=== PATIENT | female | born 1935 | race Caucasian/White ===

== ENCOUNTER 2025-01-18 20:48 | Inpatient (IN) | payer OTHER ==
[~2025-01-18] VITALS: Ht 167.6 cm; Wt 83.0 kg
--- NOTE | 2025-01-18 21:02 | ED.PDOC ---
History of Present Illness HPI Comments This is a 89 year old female JOSEA presenting to the ED with chief complaint of wellness check and generalized weakness. EMS reports that the patient was previously called for today due to having a ground level fall, however, patient signed AMA to stay at home. EMS relays that family had visited her later on and found her on the ground in her own feces and with her home being a mess. EMS states they were called and patient has generalized weakness, but no other complaints. Patient notes that she wishes to discuss with her daughter what kind of work up can be done on her, but she agrees to some lab work to be performed. Patient denies any N/V/D, abdominal pain, chest pain, or SOB. Patient was tachycardic and tachypneic at arrival with a an oxygen saturation of 90% on room air. Patient was started on 2 L of O2 and O2 saturation improved to 97%. Chief Complaint: Fall Injury Time Seen by MD: 21:00 Reviewed Notes: Nurses Notes, Training Representative Notes, Medications, Allergies Allergies: Coded Allergies: No Known Drug Allergy (Verified Allergy, Unknown, 01/18/25) Information Source: Patient, Emergency Med Personnel Mode of Arrival: EMS Severity: Moderate Timing: Hours Duration: Since onset Prehospital treatment: None Past Medical History PAST MEDICAL HISTORY: HTN, Unknown Surgical History: Unknown SUPERVISOR DOCK History: Denies all SUPERVISOR DOCK Hx Family History Family History: Reviewed,noncontributory to illness Social History Smoker: Non-Smoker Alcohol: Denies ETOH Use Drugs: Denies Drug Use Lives In: Home Constitutional: reports: fatigue, malaise, weakness; denies: chills, diaphor esis, fever, sweats, others EENTM: denies: blurred vision, double vision, ear bleeding, ear discharge, ear drainage, ear pain, ear ringing, eye pain, eye redness, hearing loss, mouth pain, mouth swelling, nasal discharge, nose bleeding, nose congestion, nose pain, photophobia, tearing, throat pain, throat swelling, voice changes, others Respiratory: denies: cough, hemoptysis, orthopnea, SOB at rest, shortness of breath, SOB with excertion, stridor, wheezing, others Cardiovascular: denies: chest pain, dizzy spells, diaphoresis, Dyspnea on exertion, edema, irregular heart beat, left arm pain, lightheadedness, palpitations, PND, syncope, others Gastrointestinal: denies: abdomen distended, abdominal pain, blood streaked bowels, constipated, diarrhea, dysphagia, difficulty swallowing, hematemesis, melena, nausea, poor appetite, poor fluid intake, rectal bleeding, rectal pain, vomiting, others Genitourinary: denies: abnormal vagina bleeding, burning, dyspareunia, dysuria, flank pain, frequency, hematuria, incontinence, pain, , vagina discharge, urgency, others Neurological: denies: dizziness, fainting, headache, left sided numbness, left sided weakness, numbness, paresthesia, pre-existing deficit, right sided numbness, right sided weakness, seizure, speech problems, tingling, tremors, weakness, others Musculoskeletal: denies: back pain, gout, joint pain, joint swelling, muscle pain, muscle stiffness, neck pain, others Integumetry: denies: bruises, change in color, change in hair/nails, dryness, laceration, lesions, lumps, rash, wounds, others Allergic/Immunocompromised: denies: Difficulty Healing, Frequent Infections, Hives, Itching, others Hematologic/Lymphatic: denies: anemia, blood clots, easy bleeding, easy bruising, swollen glands, others Endocrine: denies: excessive hunger, excessive sweating, excessive thirst, excessive urination, flushing, intolerance to cold, intolerance to heat, unexplained weight gain, unexplained weight loss, others Psychiatric: denies: anxiety, bipolar disorder, depression, hopeless, panic disorder, schizophrenia, sleepless, suicidal, others All Other Systems: Reviewed and Negative Physical Exam General Appearance: Mild Distress (Patient had some mild distress at time of evaluation due to generalized pain concerns, but patient appears to be in poor overall health.), Obese HEENT: Normal ENT Inspection, Pharynx Normal, TMs Normal Neck: Full Range of Motion, Non-Tender, Normal, Normal Inspection Respiratory: Chest Non-Tender, No Accessory Muscle Use, Normal Breath Sounds, Other (Patchy rhonchi appreciated globally.) Cardiovascular: No Edema, No JVD, No Murmur, No Gallop, Normal Peripheral Pulses, Tachycardia Breast Exam: Deferred Gastrointestinal: No Organomegaly, Non Tender, No Pulsatile Mass, Normal Bowel Sounds, Soft Genitalia: Deferred Pelvic: Deferred Rectal: Deferred Extremities: Tender (Patient has a general nonspecific diffused tenderness to palpation throughout the pelvic region.) Neurologic: Alert Cerebellar Function: NOT DONE Reflexes: NOT DONE Skin: Dry, Normal Color, Warm Lymphatic: No Adenopathy Was a procedure done? Was a procedure done?: No Differential Dx Considerations may include: Acute coronary syndrome, sepsis, electrolyte abnormality, renal disease, failure to thrive X-Ray, Labs, Meds, VS Vital Signs Date Time Temp Pulse Resp B/P (MAP) Pulse Ox O2 Delivery O2 Flow Rate FiO2 01/19/25 01:09 111 27 118/57 01/18/25 22:36 107 01/18/25 21:00 97.8 137 26 131/59 (83) 90 97.8 Lab Test 01/19/25 00:19 01/19/25 00:18 01/18/25 22:05 01/18/25 21:10 Range/Units POC Glucose 130 H 70-106 mg/dl Troponin I High Sensitivity 182 *H 167 *H 151 *H </=34 ng/L White Blood Count 9.7 4.4-10.8 10^3/uL Red Blood Count 5.14 4.0-5.20 10^6/uL Hemoglobin 15.1 12.2-16.2 g/dL Hematocrit 47.0 H 36.0-46.0 % Mean Corpuscular Volume 91.5 80.0-100.0 fL Mean Corpuscular Hemoglobin 29.4 28.0-32.0 pg Mean Corpuscular Hemoglobin Concent 32.1 32.0-36.0 g/dL Red Cell Distribution Width 17.0 H 11.8-14.3 % Platelet Count 294 140-450 10^3/uL Mean Platelet Volume 7.6 6.9-10.8 fL Neutrophils (%) (Auto) 88.1 H 37.0-80.0 % Lymphocytes (%) (Auto) 3.1 L 10.0-50.0 % Monocytes (%) (Auto) 8.5 0.0-12.0 % Eosinophils (%) (Auto) 0.0 0.0-7.0 % Basophils (%) (Auto) 0.3 0.0-2.0 % Neutrophils # (Auto) 8.5 1.6-8.6 10 ^3/uL Lymphocytes # (Auto) 0.3 L 0.4-5.4 10 ^3/uL Monocytes # (Auto) 0.8 0-1.3 10 ^3/uL Eosinophils # (Auto) 0 0-0.8 10 ^3/uL Basophils # (Auto) 0 0-0.2 10 ^3/uL Nucleated Red Blood Cells 0.2 % D-Dimer, Quantitative 5.29 H 0.0-0.49 mg/L FEU Sodium Level 152 H 136-145 mmol/L Potassium Level 3.8 3.5-5.1 mmol/L Chloride Level 115 H 98-107 mmol/L Carbon Dioxide Level 23 20-31 mmol/L Anion Gap 14 5-15 Blood Urea Nitrogen 33 H 9-23 mg/dL Creatinine 0.77 0.550-1.02 mg/dL Glomerular Filtration Rate Calc 75 >90 mL/min BUN/Creatinine Ratio 42.9 H 10.0-20.0 Serum Glucose 134 H 74-106 mg/dL Calcium Level 9.7 8.7-10.4 mg/dL Total Bilirubin 1.4 H 0.2-1.0 mg/dL Aspartate Amino Transferase (AST) 65 H 13-40 U/L Alanine Aminotransferase (ALT) 28 7-40 U/L Alkaline Phosphatase 109 46-116 U/L B-Type Natriuretic Peptide 508.02 0-100 pg/mL Total Protein 6.8 5.7-8.2 g/dL Albumin 3.7 3.2-4.8 g/dL Current Medications Medications (Trade) Dose Ordered Sig/Bennie Route Start Time Stop Time Status Last Admin Sodium Chloride 1,000 ml @ 150 mls/hr Q6H40M ONCE IV 01/18/25 21:15 01/19/25 03:54 01/18/25 21:33 Morphine Sulfate 4 mg ONCE ONCE IV 01/19/25 01:00 01/19/25 01:01 DC 01/19/25 01:09 Ondansetron HCl (Zofran) 4 mg ONCE ONCE IV 01/19/25 01:00 01/19/25 01:01 DC 01/19/25 01:09 X-Ray, Labs, Meds, VS Comment All studies performed the ED were evaluated by me personally. Multiple studies were pending at time of this note. EKG revealed a sinus tachycardia with a rate of 107. Atrial premature complex noted as well as right bundle-branch block and left fascicular block. Age indeterminate inferior infarct noted with artifact in multiple leads. LA interval 162 and QT interval of 395. Serum laboratories revealed a hyponatremia, elevated bilirubin, elevated troponin and elevated D- dimer. Patient was started empirically on Lovenox. Patient is a [facility] patient and therefore, will be transferred to [facility] for continued evaluation. Discussed case with Dr. MORE at [facility]. Advised him of patient presentation, EMS report, laboratory and EKG studies. He was concerned for a acute cardiac event due to the trending of the troponins, elevated BNP as well as a low O2 sat. He will allow the patient to stay at our facility for continued management. Authorization number [id number]. Time of 1ST Reevaluation: 01:32 Reevaluation 1ST: Improved Consultation: PCP Patient Education/Counseling: Diagnosis, Treatment Family Education/Counseling: Diagnosis, Treatment, No Family Present SEPSIS Sepsis Screen Recent Procedure: No Respiratory Rate >20: Yes Heart Rate >90: Yes Temp<36 C (96.8 F) or >38.3 C: No SBP <90 or MAP <65 mmHG: No New Acute Mental Status Change: No Is the patient on CPAP, BIPAP,: No IV fluid challenge completed?: No Physician Orders Chest Portable (01/18/25 21:01) Urinalysis (01/18/25 21:01) Heplock Iv (01/18/25 21:01) Electrocardigram (01/18/25 21:01) Sodium Chloride 0.9% (01/18/25 21:15) Vital Signs Date Time Temp Pulse Resp B/P (MAP) Pulse Ox O2 Delivery O2 Flow Rate FiO2 01/19/25 01:09 111 27 118/57 01/18/25 22:36 107 01/18/25 21:00 97.8 137 26 131/59 (83) 90 97.8 Laboratory Tests Test 01/18/25 21:10 White Blood Count 9.7 10^3/uL (4.4-10.8) Medications Medications Dose Ordered Sig/Bennie Route Start Time Stop Time Status Last Admin Dose Admin Morphine Sulfate 4 mg ONCE ONCE IV 01/19/25 01:00 01/19/25 01:01 DC 01/19/25 01:09 Ondansetron HCl 4 mg ONCE ONCE IV 01/19/25 01:00 01/19/25 01:01 DC 01/19/25 01:09 Sodium Chloride 1,000 ml @ 150 mls/hr Q6H40M ONCE IV 01/18/25 21:15 01/19/25 03:54 01/18/25 21:33 Departure 1 Departure Time of Disposition: 01:33 Impression: Primary Impression: Failure to thrive Additional Impressions: Hypernatremia Elevated bilirubin Elevated troponin Elevated d-dimer Disposition: 02 SHORT TERM HOSPITAL Condition: Fair Discharged With: Self, Relative Critical Care Note Critical Care Time?: No Stability Stability form required: No Heart Score Heart Score: Heart Score Response (Comments) Value History N/A 0 EKG N/A 0 Age N/A 0 Risk Factors N/A 0 Troponin N/A 0 Total 0 I personally scribed for KEVAN GUZMAN PAC ([email or web address]) on 01/18/25 at 21:02. Electronically submitted by Niles Abdi ([email or web address]). KEVAN GUZMAN PAC Jan 18, 2025 21:02
[2025-01-18 21:28] LABS: Hematocrit 47.0 % (36.0-46.0); Hemoglobin 15.1 g/dL (12.2-16.2); Mean Corpuscular Hemoglobin 29.4 pg (28.0-32.0); Mean Corpuscular Volume 91.5 fL (80.0-100.0); Nucleated Red Blood Cells % 0.2 %
[2025-01-18] MEDS: SODIUM CHLORIDE 0.9% 1,000 ML IV ONE (21:33)
[2025-01-18 21:47] LABS: Alanine Aminotransferase 28 U/L (7-40); Albumin 3.7 g/dL (3.2-4.8); Alkaline Phosphatase 109 U/L (46-116); Anion Gap 14 (5-15); BUN/Creatinine Ratio 42.9 (10.0-20.0); Calcium 9.7 mg/dL (8.7-10.4); Carbon Dioxide 23 mmol/L (20-31); Potassium 3.8 mmol/L (3.5-5.1); Total Protein 6.8 g/dL (5.7-8.2)
[2025-01-18 21:48] LABS: Bilirubin, Total 1.4 mg/dL (0.2-1.0); Blood Urea Nitrogen 33 mg/dL (9-23); Chloride 115 mmol/L (98-107); Glucose 134 mg/dL (74-106); Sodium 152 mmol/L (136-145)
[2025-01-18 22:00] VITALS: PULSE 117; RESP 19; O2SAT 94
[2025-01-19] VITALS (9 sets, daily range): BP systolic 112–153; BP diastolic 20–69; PULSE 64–101; RESP 12–22; TEMP 98.4–98.6; O2SAT 92–98
[2025-01-19] MEDS: ONDANSETRON HCL 4 MG/2 ML VIAL IV ONE (01:09)
[2025-01-19] MEDS: MORPHINE SULFATE 4 MG/ML SYR/VIAL IV ONE (01:09)
--- NOTE | 2025-01-19 02:13 | DVH ---
EXAM: XY CHEST PORTABLE CLINICAL HISTORY: Shortness of breath/fall TECHNIQUE: Single AP view of the chest WID: COMPARISON: None FINDINGS: Lines and tubes: None Chest: Cardiomegaly and pulmonary vascular congestion diffuse interstitial thickening of the lungs. Calcifie d plaque projects over the aortic arch. Small bilateral pleural effusions. No pneumothorax. The osseous structures are grossly intact. IMPRESSION: Cardiomegaly, interstitial pulmonary edema and pulmonary vascular congestion, small bilateral pleural effusions.
[2025-01-19] MEDS: ENOXAPARIN SOD 40 MG/0.4 ML SYRINGE SC ONE ×2 (02:21→06:46)
[2025-01-19 02:50] LABS: Urine Budding Yeast OCCASIONAL /hpf (None Seen); Urine Protein, UAD 1+ (Negative)
[2025-01-19] MEDS ORDERED: NITROGLYCERIN 0.4 MG SL TAB SL PRN (04:00)
[2025-01-19] MEDS ORDERED: VANCOMYCIN PER PHARMACY 0 MG IV SCH (04:15)
--- NOTE | 2025-01-19 04:15 | DVHHP2 ---
History of Present Illness History of Present Illness Patient is 89 years old female with a history of hypertension, depression, diabetes mellitus was brought in by EMS after she was found on the ground at home. Information was gathered from chart review and after talking to patient's daughter Sobia, . As per daughter she came from [place] last night around 7:30 p.m. when she of the patient on the floor and called EMS. As per daughter patient has been having memory issue lately. Patient had chronic leg swelling but which got worse as per daughter. On arrival patient was tachycardic, tachypneic. SpO2 90% on room air. Initial lab workup revealed refill 88.1, sodium 152, lactic acid 2.2, serum creatinine 0.77, serum glucose 134, serum bilirubin 1.4, AST 65, ALT 28, troponin I 151> 167> 182, BNP 508, Cardiomegaly, interstitial pulmonary edema and pulmonary vascular congestion, small bilateral pleural effusions. Doppler study of Bilateral lower extremity negative for DVT. Ultrasound of the liver suggestive of cirrhosis of liver, gallbladder sludge with a possible small gallstone in the gallbladder, no acute cholecystitis, bilateral hydronephrosis, left> right, obstructive uropathy not excluded. As per daughter patient has a advanced directive and patient wished to be DNR. Past Medical History Hypertension, diabetes mellitus, depression Past Surgical History Details could not be gathered Past Social History Patient's live at home alone, other details could not be gathered Review of Systems Review of Systems Review of other system could not be done due to patient's altered mental status Allergies: Coded Allergies: No Known Drug Allergy (Verified Allergy, Unknown, 01/18/25) Medications Current Medications Medications Dose Ordered Sig/Bennie Route Start Time Stop Time Status Last Admin Dose Admin Sodium Chloride 10 ml Q8HR IV 01/19/25 06:00 Enoxaparin Sodium 40 mg HS SC 01/19/25 22:00 Nitroglycerin 0.4 mg Q5MINP PRN SL 01/19/25 04:00 Meropenem 50 ml @ 17 mls/hr Q8HR IV 01/19/25 06:00 Vancomycin HCl 0 ml @ 0 mls/hr UD IV 01/19/25 04:15 UNV Pantoprazole Sodium 40 mg DAILY IV 01/20/25 10:00 Exam Vital Signs Vital Signs Date Time Temp Pulse Resp B/P (MAP) Pulse Ox O2 Delivery O2 Flow Rate FiO2 01/19/25 01:09 111 27 118/57 01/18/25 21:00 97.8 90 97.8 Exam General examination- patient with poor dentition HEENT- PEERLA, no acute nasal discharge Cardiovascular- S1-S2 audible, rate and rhythm regular, systolic murmur+ Respiratory- bilateral lung crackles+ Gastrointestinal-nontender, bowel sound+. Nondistended Musculoskeletal-no acute joint swelling or tenderness or redness Lower extremity- bilateral leg swollen, red, erythematous, crusty Neurological-patient with altered mental status, details of the neurologic examination could not be done Psychiatry- patient with altered mental status Skin-bilateral leg swelling, redness, erythematous Labs/Xrays Labs Test 01/19/25 01:21 01/19/25 00:19 01/19/25 00:18 01/18/25 21:10 Range/Units Urine Color Yellow Yellow Urine Clarity Turbid H Clear Urine pH 5.5 5.0-9.0 Urine Specific [place] 1.027 1.001-1.035 Urine Protein 1+ H Negative Urine Ketones 1+ H Negative Urine Blood 1+ H Negative /uL Urine Nitrite Negative Negative Urine Bilirubin Negative Negative Urine Urobilinogen Normal Negative mg/dL Urine Leukocyte Esterase Trace Negative /uL Urine RBC 1 0 - 4 /hpf Urine Microscopic WBC 11 H 0-5 /HPF Urine Squamous Epithelial Cells Few <5 /hpf Urine Bacteria Many H None Seen /hpf Urine Mucus Few None Seen Urine Yeast (Budding) Occasional None Seen /hpf Urine Glucose Normal Normal mg/dL POC Glucose 130 H 70-106 mg/dl Troponin I High Sensitivity 182 *H </=34 ng/L White Blood Count 9.7 4.4-10.8 10^3/uL Red Blood Count 5.14 4.0-5.20 10^6/uL Hemoglobin 15.1 12.2-16.2 g/dL Hematocrit 47.0 H 36.0-46.0 % Mean Corpuscular Volume 91.5 80.0-100.0 fL Mean Corpuscular Hemoglobin 29.4 28.0-32.0 pg Mean Corpuscular Hemoglobin Concent 32.1 32.0-36.0 g/dL Red Cell Distribution Width 17.0 H 11.8-14.3 % Platelet Count 294 140-450 10^3/uL Mean Platelet Volume 7.6 6.9-10.8 fL Neutrophils (%) (Auto) 88.1 H 37.0-80.0 % Lymphocytes (%) (Auto) 3.1 L 10.0-50.0 % Monocytes (%) (Auto) 8.5 0.0-12.0 % Eosinophils (%) (Auto) 0.0 0.0-7.0 % Basophils (%) (Auto) 0.3 0.0-2.0 % Neutrophils # (Auto) 8.5 1.6-8.6 10 ^3/uL Lymphocytes # (Auto) 0.3 L 0.4-5.4 10 ^3/uL Monocytes # (Auto) 0.8 0-1.3 10 ^3/uL Eosinophils # (Auto) 0 0-0.8 10 ^3/uL Basophils # (Auto) 0 0-0.2 10 ^3/uL Nucleated Red Blood Cells 0.2 % D-Dimer, Quantitative 5.29 H 0.0-0.49 mg/L FEU Sodium Level 152 H 136-145 mmol/L Potassium Level 3.8 3.5-5.1 mmol/L Chloride Level 115 H 98-107 mmol/L Carbon Dioxide Level 23 20-31 mmol/L Anion Gap 14 5-15 Blood Urea Nitrogen 33 H 9-23 mg/dL Creatinine 0.77 0.550-1.02 mg/dL Glomerular Filtration Rate Calc 75 >90 mL/min BUN/Creatinine Ratio 42.9 H 10.0-20.0 Serum Glucose 134 H 74-106 mg/dL Calcium Level 9.7 8.7-10.4 mg/dL Total Bilirubin 1.4 H 0.2-1.0 mg/dL Aspartate Amino Transferase (AST) 65 H 13-40 U/L Alanine Aminotransferase (ALT) 28 7-40 U/L Alkaline Phosphatase 109 46-116 U/L B-Type Natriuretic Peptide 508.02 0-100 pg/mL Total Protein 6.8 5.7-8.2 g/dL Albumin 3.7 3.2-4.8 g/dL Assessment/Plan Assessment/Plan Assessment and plan # metabolic encephalopathy/hepatic encephalopathy likely due to cirrhosis of liver, cellulitis/UTI -NPO -continue meropenem and vancomycin as prescribed -pending blood culture, urine culture, sputum culture -pending serum ammonia, TSH -monitor vitals # acute hypoxic respiratory failure likely due to CHF Rule out pulmonary embolism Rule out pneumonia -pending blood culture, urine culture, sputum culture -continue meropenem and vancomycin as prescribed # NSTEMI likely type 2 due to demand related ischemia -pending echo 2D # bilateral lower extremity cellulitis -continue meropenem and vancomycin as prescribed -pending blood culture, urine culture, sputum culture -pending serum ammonia, TSH -monitor vitals # bilateral leg swelling, rule out DVT -elevated D-dimer 5.29 -pending Doppler study of the bilateral lower extremity -order CT angio of the chest to rule out pulmonary embolism # sepsis likely due to bilateral lower extremity cellulitis Continue meropenem and vancomycin as prescribed -pending blood culture, uterine culture, sputum culture # CHF systolic versus diastolic -continue Lasix 20 mg IV b.i.d. Pending echo 2D Ordered cardiology consult # cirrhosis of liver -ultrasound of the liver suggestive of cirrhosis of liver -continue lactulose 30 mL b.i.d. -avoid dehydration and constipation # hyper ammonia -lactulose 30 mL p.o. b.i.d. -avoid constipation # hypernatremia # transaminitis -monitor BNP -order acute hepatitis panel # suspected acute complicated cystitis -continue metoprolol as prescribed -pending urine culture # altered mental status Continue IV antibiotic meropenem and vancomycin as prescribed -pending blood culture, urine culture, sputum culture # gallbladder surge with a gallstone -continue conservative management # bilateral hydronephrosis -continue conservative management Diet-NPO Patient with AMS likely due to metabolic encephalopathy, CHF, acute hypoxic respiratory failure, suspected pulmonary embolism/pneumonia, bilateral lower extremity cellulitis. patient is clinically unstable to be transferred. spoke to patient's daughter Daughter Sobia [phone]. Family mentioned patient wants DNR. But continue aggressive management until. Goals of care, Code status DNR ; discussed with >15 minutes PUD prophylaxis: Pantoprazole DVT prophylaxis: Plan discussed with Dr. Cannon , nursing staff, Total time spent on patient evaluation, chart review, assessment and plan, discussion discussion >35 minutes Plan discussed with: Daughter, Other (RN) My Orders Orders - VERONICA MEDRANO RESIDENT Procedure Category Date Status Time Admit ADMIT 01/19/25 Transmitted 03:54 Sodium Chloride Lock PHA 01/19/25 In Process (Saline Lock Ns) 06:00 Enoxaparin Sodium PHA 01/19/25 In Process (Lovenox) 22:00 Complete Blood Count LAB 01/20/25 Verified 04:00 Comprehensive LAB 01/20/25 Verified Metabolic Panel 04:00 Npo (Nothing By DIET 01/19/25 Transmitted Mouth) Diet Breakfast Echo 2d Mode Cardiac US 01/19/25 Logged DOP 03:54 Stat Ekg For Chest EMMA 01/19/25 In Process Pain 03:54 Notify Md Of Changes EMMA 01/19/25 In Process From Base 03:54 Hooker Laster For EMMA 01/19/25 In Process 24 Hours 03:54 Nitroglycerin PHA 01/19/25 In Process Sublingual (Ntrostat 04:00 Magnesium LAB 01/19/25 Logged 03:56 Bilat Lower Dvt US 01/19/25 Logged 03:[address] 01/19/25 Logged 03:[address] 01/19/25 Transmitted Contrast 03:56 Thyroid Stimulating LAB 01/19/25 Transmitted Hormone 03:56 Ammonia LAB 01/19/25 Logged 03:59 Lactic Acid W/ Reflex LAB 01/19/25 Logged Order 03:59 Blood Culture RUY 01/19/25 Logged 03:59 Respiratory Culture RUY 01/19/25 Logged W/ Gs 03:59 Urine Bacterial RUY 01/19/25 Logged Culture 03:59 Meropenem 1gm Ivpb PHA 01/19/25 In Process (Merrem 1gm/ Ns) 06:00 Vancomycin Per PHA 01/19/25 Pending Pharmacy 04:15 Pantoprazole PHA 01/19/25 In Process (Protonix) 04:15 Covid19 Antigen Naina LAB 01/19/25 Logged Rapid Influenza A&B LAB 01/19/25 Logged 04:04 Mrsa Screen RUY 01/19/25 Logged 04:04 Pantoprazole PHA 01/20/25 In Process (Protonix) 10:00 Vancomycin 1gm/200ml PHA 01/19/25 In Process Pm 04:15 Date of Service: Jan 19, 2025 Billing Provider: JOSE CANNON MD Common Visit Codes: [id number] INP/OBS CARE (HIGH) Secondary Visit Codes: [id number] CARE PLAN 30 MINUTES BABU,MOHAMMED RESIDENT Jan 19, 2025 04:15
[2025-01-19 04:36] LABS: Lactic Acid w/Reflex 2.2 mmol/L (0.4-2.0)
[2025-01-19] MEDS: PANTOPRAZOLE 40 MG/10 ML VIAL INJ IV ONE (04:45)
[2025-01-19] MEDS: LACTULOSE 20Gm/30ML SOLN PO ONE (05:30)
--- NOTE | 2025-01-19 05:43 | DVH ---
EXAM: CT HEAD WITHOUT CONTRAST HISTORY: AMS/STROKE COMPARISON: None TECHNIQUE: Noncontrast axial CT images of the head were performed. Sagittal and coronal reformatted i mages were obtained. This CT exam was performed using 1 or more of the following dose reduction techn iques: Automated exposure control, adjustment of the mA and/or kv according to patient size, or the u se of iterative reconstruction techniques. Radiation Dose: CTDI volume is 56.62 mGy. Dose-length product is 1114.02 mGy*cm FINDINGS: There is mild global brain atrophy. There is mild decreased attenuation in the periventricular white matter. There are old lacunar infarcts versus prominent perivascular spaces along the caudal margins of the bilateral basal ganglia. Possible empty sella. No intracranial hemorrhage, mass, midline shift , hydrocephalus, or evidence of acute large vessel infarct. The partially-visualized paranasal sinuse s are clear. The bilateral mastoid air cells and middle ear spaces are clear. There are degenerative changes of the temporomandibular joints, more severe on the right. No cranial fracture or scalp edema . Patient motion limits evaluation, especially on the more caudal images. IMPRESSION: Mild global brain atrophy and chronic ischemic changes without evidence of acute intracranial process .
[2025-01-19] MEDS: SODIUM CHLOR 0.9% PF (SALINE LOCK) 10ML VIAL/SYR IV SCH (06:00)
--- NOTE | 2025-01-19 06:42 | ECG ---
[facility] Test Date: 2025-01-18 Test Time: 22:36:37 Pat Name: JAYSON CENTENO Department: ER Room: 0220T Gender: F Subject Scientific Research: NANCY : 1935 Requested By: KEVAN GUZMAN Order Number: [id number] Reading MD: Rk Solano Measurements Intervals [place] Rate: 107 P: 51 CT: 162 QRS: 148 QRSD: 137 T: -12 QT: 395 QTc: 527 Interpretive Statements Sinus tachycardia Atrial premature complex RBBB and LPFB Inferior infarct, age indeterminate Artifact in lead(s) I,II,III,aVR,V1,V2,V3,V4,V5,V6 Electronically Signed On 01-24-2025 18:47:50 PDT by Rk Solano Please click the below link to view image of tracing.
[2025-01-19] MEDS: FUROSEMIDE 20 MG/2 ML VIAL IV ONE (06:46)
[2025-01-19] MEDS: MEROPENEM 1GM IVPB 50 ML IV SCH (06:50)
--- NOTE | 2025-01-19 07:56 | DVH ---
Bilateral lower extremity venous duplex Clinical History: LEG SWELLING Comparison: None Technique: Duplex Doppler evaluation of the deep venous systems of both lower extremities from the common femora l veins to the popliteal veins including color Doppler and spectral/pulsed waveform analysis was perf ormed. Findings: RIGHT SIDE: The common femoral vein demonstrates appropriate compressibility and waveform variability. There is compressibility/patency of the great saphenous vein at the proximal thigh. The femoral vein demonstrates appropriate compressibility and waveform variability. The deep femoral vein demonstrates appropriate compressibility and waveform variability. The popliteal vein demonstrates appropriate compressibility and waveform variability. There is normal compressibility at the tibioperoneal trunk. LEFT SIDE: The common femoral vein demonstrates appropriate compressibility and waveform variability. There is compressibility/patency of the great saphenous vein at the proximal thigh. The femoral vein demonstrates appropriate compressibility and waveform variability. The deep femoral vein demonstrates appropriate compressibility and waveform variability. The popliteal vein demonstrates appropriate compressibility and waveform variability. There is normal compressibility at the tibioperoneal trunk. Impression: No right or left femoropopliteal venous thrombosis.
--- NOTE | 2025-01-19 08:03 | DVH ---
CLINICAL INFORMATION: Cirrhosis. TECHNIQUE: Grayscale sonographic imaging of the right upper quadrant of the abdomen was performed, a ssisted by color Doppler technique. COMPARISON: None FINDINGS: The gallbladder wall measures 1.4 mm in thickness, within normal limits. There is sludge in the gallbladder and possible superimposed gallstones. Limited evaluation of the gallbladder due t o the patient's clinical condition, unable to move the patient into the left lateral decubitus positi on. Negative reported sonographic navarro's sign. The common bile duct measures 2.5 mm in diameter, w ithin normal limits. Coarsened liver echotexture. Mild nodular contour of the liver, may be seen with cirrhosis in the feroz ropriate clinical setting. The pancreas is obscured by bowel gas. The right kidney measures 9.8 cm. There is mild to moderate right hydronephrosis. Normal cortical e chogenicity and cortical thickness. The left kidney was scanned for comparison. Left kidney measures 11.5 cm in length. Mild left hydron ephrosis. Unremarkable echogenicity and cortical thickness of the left kidney. IMPRESSION: 1. Nodular contour of the liver and coarsened liver echotexture, may be seen with cirrhosis in the ap propriate clinical setting. Correlate with clinical findings. 2. There is gallbladder sludge and possible small gallstones in the gallbladder. Limited evaluation of the gallbladder for the reasons described above. No sonographic evidence of acute cholecystitis. 3. There is bilateral hydronephrosis, left greater than right. Obstructive uropathy not excluded. Co rrelate with clinical findings. If clinically indicated, CT could be obtained.
[2025-01-19 08:34] LABS: Hematocrit 46.9 % (36.0-46.0); Hemoglobin 14.6 g/dL (12.2-16.2); Mean Corpuscular Hemoglobin 29.4 pg (28.0-32.0); Mean Corpuscular Volume 94.7 fL (80.0-100.0); Nucleated Red Blood Cells % 0.0 %
[2025-01-19 08:52] LABS: Alanine Aminotransferase 33 U/L (7-40); Albumin 3.3 g/dL (3.2-4.8); Alkaline Phosphatase 105 U/L (46-116); Anion Gap 12 (5-15); BUN/Creatinine Ratio 47.1 (10.0-20.0); Bilirubin, Total 1.2 mg/dL (0.2-1.0); Calcium 9.0 mg/dL (8.7-10.4); Carbon Dioxide 23 mmol/L (20-31); Glucose 96 mg/dL (74-106); Magnesium 1.9 mg/dL (1.6-2.6); Potassium 3.8 mmol/L (3.5-5.1); Total Protein 6.0 g/dL (5.7-8.2)
[2025-01-19 08:53] LABS: Blood Urea Nitrogen 32 mg/dL (9-23); Chloride 120 mmol/L (98-107); Sodium 155 mmol/L (136-145)
[2025-01-19] MEDS: LACTULOSE 20Gm/30ML SOLN PO SCH (09:41)
[2025-01-19 11:01] LABS: COVID19 ANTIGEN SOFIA FIA NEGATIVE (NEGATIVE)
[2025-01-19] MEDS: IOHEXOL 300 MG/ML 100ML BOTTLE IJ ONE (16:41)
--- NOTE | 2025-01-19 17:38 | DVHPN2 ---
Subjective Patient remains A&O x1. She is barely able to answer any questions for ROS. Remains confused. Daughter at bedside remains concerned and communicates that patient is very hard headed and hides her chronic complaints. Patient's chart reviewed and patient has advanced directive for DNR DNI. Reviewed: H&P Changes from previous H/P or p: No Changes General: Per HPI Objective Vitals Vital Signs Date Time Temp Pulse Resp B/P (MAP) Pulse Ox O2 Delivery O2 Flow Rate FiO2 01/19/25 16:52 98.6 98 19 133/55 (81) 96 98.6 01/19/25 09:03 Nasal Cannula* 3 32 Intake/Output Intake and Output 01/19/25 07:00 Intake Total 900 ml Balance 900 ml IV Total 900 ml Exam GEN: Healthy appearing, well-developed, NAD. Disheveled, very on hygienic, A&O x1, somnolent HEENT: Poor dentition, want to thin lower teeth is almost loose CV: RRR, no m/r/g. LUNGS: CTAB, no w/r/c. ABD: Soft, NT/ND, NBS, no masses or organomegaly. EXT:. Chronic pitting edema and weeping has resulted in crusting of legs, edema is trace to 1+ bilateral. NEURO: Ambulating with no limitations. No focal deficits. Patient has a resting tremor versus with posture. Medications Current Medications Medications Dose Ordered Sig/Bennie Route Start Time Stop Time Status Last Admin Dose Admin Sodium Chloride 10 ml Q8HR IV 01/19/25 06:00 01/19/25 13:59 10 ML Nitroglycerin 0.4 mg Q5MINP PRN SL 01/19/25 04:00 Meropenem 50 ml @ 17 mls/hr Q8HR IV 01/19/25 06:00 01/19/25 13:53 17 MLS/HR Vancomycin HCl 0 ml @ 0 mls/hr UD IV 01/19/25 04:15 Pantoprazole Sodium 40 mg DAILY IV 01/20/25 10:00 Enoxaparin Sodium 40 mg DAILY SC 01/20/25 10:00 Furosemide 20 mg BIDD IV 01/19/25 18:00 Lactulose 30 ml BID PO 01/19/25 10:00 Vancomycin HCl 150 ml @ 150 mls/hr Q16H IV 01/19/25 21:00 Laboratory Results Laboratory Tests 01/19/25 08:05 Chemistry Test 01/18/25 21:10 01/19/25 04:07 01/19/25 08:05 Albumin 3.7 g/dL (3.2-4.8) 3.3 g/dL (3.2-4.8) Calcium Level 9.7 mg/dL (8.7-10.4) 9.0 mg/dL (8.7-10.4) Total Protein 6.8 g/dL (5.7-8.2) 6.0 g/dL (5.7-8.2) Magnesium Level 2.0 mg/dL (1.6-2.6) 1.9 mg/dL (1.6-2.6) Coagulation Test 01/18/25 21:10 D-Dimer, Quantitative 5.29 mg/L FEU (0.0-0.49) H Cardiac Markers Test 01/18/25 21:10 01/19/25 11:49 B-Type Natriuretic Peptide 508.02 pg/mL (0-100) 597.68 pg/mL (0-100) LFT Test 01/18/25 21:10 01/19/25 08:05 Alanine Aminotransferase (ALT) 28 U/L (7-40) 33 U/L (7-40) Alkaline Phosphatase 109 U/L (46-116) 105 U/L (46-116) Aspartate Amino Transferase (AST) 65 U/L (13-40) H 77 U/L (13-40) H Total Bilirubin 1.4 mg/dL (0.2-1.0) H 1.2 mg/dL (0.2-1.0) H HgA1c, TSH Test 01/19/25 04:07 Thyroid Stimulating Hormone (TSH) 1.55 uIU/mL (0.55-4.78) Urinalysis Test 01/19/25 01:21 Urine Color Yellow (Yellow) Urine Clarity Turbid (Clear) H Urine pH 5.5 (5.0-9.0) Urine Specific [place] 1.027 (1.001-1.035) Urine Protein 1+ (Negative) H Urine Ketones 1+ (Negative) H Urine Blood 1+ /uL (Negative) H Urine Nitrite Negative (Negative) Urine Bilirubin Negative (Negative) Urine Urobilinogen Normal mg/dL (Negative) Urine Leukocyte Esterase Trace /uL (Negative) Urine RBC 1 /hpf (0 - 4) Urine Microscopic WBC 11 /HPF (0-5) H Urine Squamous Epithelial Cells Few /hpf (<5) Urine Bacteria Many /hpf (None Seen) H Urine Mucus Few (None Seen) Urine Yeast (Budding) Occasional /hpf (None Urine Glucose Normal mg/dL (Normal) Labs and/or images reviewed: Labs reviewed by me, Image(s) reviewed by me Assessment/Plan Assessment/Plan Acute hypoxic respiratory failure due to below Aspiration pneumonia Community-acquired pneumonia, Gram-negative Gram-positive likely Sepsis due to above Tachycardia Tachypnea Volume overload state Acute decompensated heart failure, congestive heart failure with exacerbation, diastolic failure possible Acute toxic metabolic encephalopathy due to below Cirrhosis Hepatic encephalopathy likely Hyperammonemia Intravascular volume depletion NSTEMI and Troponinemia, likely type 2, demand ischemia due to above Dental infection likely Poor dentition Azotemia Lactic acidosis Bilateral lower extremity edema Ruled out DVT Bilateral hydronephrosis Acute on Chronic urinary retention Acute Pulmonary edema Neutrophilia Hypernatremia Hyperbilirubinemia Transaminitis, mild Rhabdomyolysis Intracranial hemorrhage ruled out Cholelithiasis with Gallbladder sludge - maintain oxygen saturation more than 92% -continue broad-spectrum antibiotics, sepsis protocol , vancomycin/meropenem -Blood cultures pending, -maintaining telemetry -clear liquid diet only ( juice sips, water sips, ice chips only if awake , alert) -lactulose 30 b.i.d. - TSH normal limits -D5W for hypernatremia likely due to intravascular volume depletion - very poor prognosis at this time. - wound care consult -[place] and maintain - DVT prophylaxis with Lovenox -unstable for transfer at this time as patient is hypersomnolent with septic picture. Patient is at high risk of decompensating anytime. Patient is to be maintained as DNR DNI as per advance directives.. Patient unable to make decisions for transfer right now. We will communicate with daughter tomorrow once patient is stable for transfer. Plan discussed with: Patient Date of Service: Jan 19, 2025 Billing Provider: WALTER DAVID MD Common Visit Codes: [id number] INP/OBS CARE(HIGH) WALTER DAVID MD Jan 19, 2025 17:38
--- NOTE | 2025-01-19 17:53 | DVH ---
EXAM: CT CT ANGIO CHEST CONTRAST History: Rule out PE Comparison Study: None TECHNIQUE: A digital community engagement representative image was obtained. During the uneventful, intravenous administration of c ontrast material, multislice data acquisition was obtained through the chest. 3-D postprocessing is performed by technologist including MIP imaging Radiation Dose : CTDI vol 23.29 mGy, DLP 779.9 mGy*cm. Findings: Lungs: The lungs are clear. Pleura: Trace bilateral pleural effusions. Heart/Great vessels: No cardiomegaly or pericardial effusion. No pulmonary embolism, aneurysm, or dis section. Moderate coronary atherosclerosis. Mediastinum: Unremarkable Soft tissues/Bones: Mild multilevel degenerative changes of the thoracic spine. The partially visualized upper abdomen is within normal limits. Impression: 1. No evidence of a pulmonary embolism, aneurysm, or dissection. 2. Trace bilateral pleural effusions.
[2025-01-19] MEDS: FUROSEMIDE 20 MG/2 ML VIAL IV SCH (18:47)
[2025-01-19] MEDS: D5W 5% 1,000 ML IV SCH (18:49)
[2025-01-19] MEDS: VANCOMYCIN 750mg/150ml 150 ML IV SCH (21:12)
[2025-01-19] MEDS ORDERED: ENOXAPARIN SOD 40 MG/0.4 ML SYRINGE SC SCH (22:00)
[2025-01-20] VITALS (7 sets, daily range): BP systolic 108–122; BP diastolic 40–85; PULSE 89–112; RESP 17–20; TEMP 98.1–98.8; O2SAT 94–97
[2025-01-20 07:24] LABS: Hematocrit 43.6 % (36.0-46.0); Hemoglobin 14.0 g/dL (12.2-16.2); Mean Corpuscular Hemoglobin 29.5 pg (28.0-32.0); Mean Corpuscular Volume 92.1 fL (80.0-100.0); Nucleated Red Blood Cells % 0.1 %
[2025-01-20 07:43] LABS: Alanine Aminotransferase 26 U/L (7-40); Alkaline Phosphatase 91 U/L (46-116); Anion Gap 12 (5-15); BUN/Creatinine Ratio 35.0 (10.0-20.0); Bilirubin, Total 0.7 mg/dL (0.2-1.0); Blood Urea Nitrogen 21 mg/dL (9-23); Calcium 9.0 mg/dL (8.7-10.4); Carbon Dioxide 26 mmol/L (20-31); Total Protein 5.9 g/dL (5.7-8.2)
[2025-01-20 07:45] LABS: Albumin 3.1 g/dL (3.2-4.8); Chloride 116 mmol/L (98-107); Glucose 59 mg/dL (74-106); Potassium 3.1 mmol/L (3.5-5.1); Sodium 154 mmol/L (136-145)
[2025-01-20] MEDS: PANTOPRAZOLE 40 MG/10 ML VIAL INJ IV SCH (09:34)
[2025-01-20] MEDS: ENOXAPARIN SOD 40 MG/0.4 ML SYRINGE SC SCH (09:35)
--- NOTE | 2025-01-20 09:47 | DVHSR ---
APPROVED REPORT EXAM: Two-dimensional and M-mode echocardiogram with Doppler and color Doppler. Blood Pressure: 130/59 mmHg INDICATION CHF RISK FACTORS Height: 5' 6", Weight: 220 DIMENSIONS LVDd4.0 (3.8-5.7cm)LA (2D)4.3 (1.9-4.0cm)Aortic Root3.3 (2.0-3.7cm) LVDs3.0 (2.5-4.0cm)LA (MM) (1.9-4.0cm)Aortic Cusp Exc1.6 (1.5-2.0cm) EF (%) 50.0 (55-70%)Rt. Atrium4.7 (1.9-4.0cm)Asc. Aorta cm IVSd1.5 (0.7-1.1cm)RV (D) (1.8-2.4cm) PWd1.4 (0.7-1.1cm) Mitral Valve MitralMitral Stenosis E wave1.70m/sMV Mean GR.7mmHg A wave1.70m/sMV Peak GR.12mmHg E/A ratio1.02D MVAcm2 DECEL [id number] 1/2 Timems Aortic Valve Aortic ValveAortic Stenosis V11.20m/Mohsen Mean GR.14mmHg V22.50m/Mohsen Peak GR.26mmHg LVOT Diameter2.0 (1.8-2.4cm)Doppler AVA1.51cm2 Pulmonic Valve V20.90m/s Tricuspid Valve TR Velocity3.60m/s [id number] Conclusion lvef 55% severe LVH normal rv function severe mitral stenosis, mean gradient of 7 mmhg left atrium enlarged severe tricuspid regurg
[2025-01-20] MEDS ORDERED: MORPHINE SULFATE INJ 2 MG/ml SYRG IV PRN (10:30)
--- NOTE | 2025-01-20 10:36 | DVHPN2 ---
Reviewed: Care Plan, H&P, Labs, Medications, Previous Orders Changes from previous H/P or p: No Changes General: Per HPI Objective Vitals Vital Signs Date Time Temp Pulse Resp B/P (MAP) Pulse Ox O2 Delivery O2 Flow Rate FiO2 01/20/25 09:00 98.1 112 20 117/40 (65) 97 98.1 01/19/25 20:00 Nasal Cannula* 5 40 Intake/Output Intake and Output 01/20/25 07:00 Intake Total 550 ml Output Total 2800 ml Balance -2250 ml Intake Oral 250 ml IV Total 300 ml Output Urine Total 2800 ml General Appearance: Alert, Oriented X3 Cardiovascular: Regular rate, Normal S1, Normal S2 Extremities: No clubbing Neuro: Normal speech Medications Current Medications Medications Dose Ordered Sig/Bennie Route Start Time Stop Time Status Last Admin Dose Admin Sodium Chloride 10 ml Q8HR IV 01/19/25 06:00 01/20/25 05:47 10 ML Nitroglycerin 0.4 mg Q5MINP PRN SL 01/19/25 04:00 Meropenem 50 ml @ 17 mls/hr Q8HR IV 01/19/25 06:00 01/20/25 05:47 17 MLS/HR Vancomycin HCl 0 ml @ 0 mls/hr UD IV 01/19/25 04:15 Pantoprazole Sodium 40 mg DAILY IV 01/20/25 10:00 01/20/25 09:34 40 MG Enoxaparin Sodium 40 mg DAILY SC 01/20/25 10:00 01/20/25 09:35 40 MG Furosemide 20 mg BIDD IV 01/19/25 18:00 01/20/25 05:47 20 MG Lactulose 30 ml BID PO 01/19/25 10:00 01/20/25 09:34 30 ML Vancomycin HCl 150 ml @ 150 mls/hr Q16H IV 01/19/25 21:00 01/19/25 21:12 150 MLS/HR Dextrose 1,000 ml @ 50 mls/hr Q20H IV 01/19/25 17:45 01/19/25 18:49 50 MLS/HR Acetaminophen/ Hydrocodone Bitart 1 tab Q6HP PRN PO 01/20/25 10:30 Morphine Sulfate 1 mg Q4HP PRN IV 01/20/25 10:30 Laboratory Results Laboratory Tests 01/20/25 05:47 Chemistry Test 01/20/25 05:47 Albumin 3.1 g/dL (3.2-4.8) L Calcium Level 9.0 mg/dL (8.7-10.4) Total Protein 5.9 g/dL (5.7-8.2) Cardiac Markers Test 01/19/25 11:49 B-Type Natriuretic Peptide 597.68 pg/mL (0-100) LFT Test 01/20/25 05:47 Alanine Aminotransferase (ALT) 26 U/L (7-40) Alkaline Phosphatase 91 U/L (46-116) Aspartate Amino Transferase (AST) 63 U/L (13-40) H Total Bilirubin 0.7 mg/dL (0.2-1.0) Urinalysis Test 01/19/25 01:21 Urine Color Yellow (Yellow) Urine Clarity Turbid (Clear) H Urine pH 5.5 (5.0-9.0) Urine Specific [place] 1.027 (1.001-1.035) Urine Protein 1+ (Negative) H Urine Ketones 1+ (Negative) H Urine Blood 1+ /uL (Negative) H Urine Nitrite Negative (Negative) Urine Bilirubin Negative (Negative) Urine Urobilinogen Normal mg/dL (Negative) Urine Leukocyte Esterase Trace /uL (Negative) Urine RBC 1 /hpf (0 - 4) Urine Microscopic WBC 11 /HPF (0-5) H Urine Squamous Epithelial Cells Few /hpf (<5) Urine Bacteria Many /hpf (None Seen) H Urine Mucus Few (None Seen) Urine Yeast (Budding) Occasional /hpf (None Urine Glucose Normal mg/dL (Normal) Microbiology Microbiology Date/Time Source Procedure Growth Status 01/19/25 08:00 Voided Urine Urine Culture - Preliminary Resulted 01/19/25 04:07 Blood Blood Culture - Preliminary NO GROWTH AFTER 24 HOURS OF INCUBATION. Resulted Labs and/or images reviewed: Labs reviewed by me, Image(s) reviewed by me Assessment/Plan Assessment/Plan Patient is 89 years old female with a history of hypertension, depression, diabetes mellitus was brought in by EMS after she was found on the ground at home. Information was gathered from chart review and after talking to patient's daughter Sobia, . As per daughter she came from [place] last night around 7:30 p.m. when she of the patient on the floor and called EMS. As per daughter patient has been having memory issue lately. Patient had chronic leg swelling but which got worse as per daughter. On arrival patient was tachycardic, tachypneic. SpO2 90% on room air. Initial lab workup revealed refill 88.1, sodium 152, lactic acid 2.2, serum creatinine 0.77, serum glucose 134, serum bilirubin 1.4, AST 65, ALT 28, troponin I 151> 167> 182, BNP 508, Cardiomegaly, interstitial pulmonary edema and pulmonary vascular congestion, small bilateral pleural effusions. Doppler study of Bilateral lower extremity negative for DVT. Ultrasound of the liver suggestive of cirrhosis of liver, gallbladder sludge with a possible small gallstone in the gallbladder, no acute cholecystitis, bilateral hydronephrosis, left> right, obstructive uropathy not excluded. Acute hypoxic respiratory failure due to below Aspiration pneumonia Community-acquired pneumonia, Gram-negative Gram-positive likely Sepsis due to above Tachycardia Tachypnea Volume overload state Acute decompensated heart failure, congestive heart failure with exacerbation, diastolic failure possible Acute toxic metabolic encephalopathy due to below Cirrhosis Hepatic encephalopathy likely Hyperammonemia Intravascular volume depletion NSTEMI and Troponinemia, likely type 2, demand ischemia due to above Dental infection likely Poor dentition Azotemia Lactic acidosis Bilateral lower extremity edema Ruled out DVT Bilateral hydronephrosis Acute on Chronic urinary retention Acute Pulmonary edema Neutrophilia Hypernatremia Hyperbilirubinemia Transaminitis, mild Rhabdomyolysis Intracranial hemorrhage ruled out Cholelithiasis with Gallbladder sludge CT abd 1. Nodular contour of the liver and coarsened liver echotexture, may be seen with cirrhosis in the appropriate clinical setting. Correlate with clinical findings. 2. There is gallbladder sludge and possible small gallstones in the gallbladder. Limited evaluation of the gallbladder for the reasons described above. No sonographic evidence of acute cholecystitis. 3. There is bilateral hydronephrosis, left greater than right. Obstructive uropathy not excluded. Correlate with clinical findings. If clinically indicated, CT could be obtained. 01/20/2025: Continue with IV antibiotics for treatment of sepsis with a pneumonia. Patient is still acutely encephalopathy but has underlying dementia as baseline as well Possible discharge in 24-48 hours if symptoms improve Plan discussed with: Patient Date of Service: Jan 20, 2025 Billing Provider: BENJI VELEZ DO Common Visit Codes: [id number] INP/OBS CARE(HIGH) BENJI VELEZ DO Jan 20, 2025 10:36
[2025-01-20] MEDS: POTASSIUM EFFERVESENT TAB 25 MEQ PO ONE (11:03)
[2025-01-20] MEDS: HYDROcodone-ACET 10/325MG TAB PO PRN (11:31)
[2025-01-20] MEDS ORDERED: POTASSIUM CHL 20 Meq TABLET PO ONE (13:00)
[2025-01-21] VITALS (8 sets, daily range): BP systolic 103–136; BP diastolic 54–70; PULSE 73–110; RESP 16–20; TEMP 97.2–100.5; O2SAT 95–97
[2025-01-21 09:29] LABS: Hematocrit 43.5 % (36.0-46.0); Hemoglobin 14.0 g/dL (12.2-16.2); Mean Corpuscular Hemoglobin 29.5 pg (28.0-32.0); Mean Corpuscular Volume 91.6 fL (80.0-100.0); Nucleated Red Blood Cells % 0.1 %
[2025-01-21 10:11] LABS: Hepatitis B Surface Antigen Negative (Negative)
[2025-01-21 10:34] LABS: Hepatitis C Antibody Negative (Negative)
[2025-01-21] MEDS: D5W 5% 1,000 ML IV SCH (15:12)
[2025-01-21] MEDS ORDERED: VANCOMYCIN 750mg/150ml 150 ML IV SCH (15:30)
[2025-01-21] MEDS: VANCOMYCIN 750mg/150ml 150 ML IV SCH (17:14)
--- NOTE | 2025-01-21 19:17 | DVHPN2 ---
Subjective I am assuming the care of the patient was from today onwards. Detailed sign out obtained. This is a follow up on an 89-year-old female with a known history of hypertension diabetes mellitus type 2 history of depression came to the hospital with a status post fall. Patient was diagnosed with a possible aspiration pneumonia, E coli UTI, liver cirrhosis. Reviewed: Care Plan, H&P, Labs, Medications, Previous Orders Changes from previous H/P or p: No Changes General: Per HPI Objective Vitals Vital Signs Date Time Temp Pulse Resp B/P (MAP) Pulse Ox O2 Delivery O2 Flow Rate FiO2 01/21/25 17:19 94/60 01/21/25 17:00 97.5 95 18 97 97.5 01/21/25 08:00 Nasal Cannula* 4 36 Intake/Output Intake and Output 01/21/25 07:00 Intake Total 2800 ml Output Total 2450 ml Balance 350 ml Intake Oral 1900 ml IV Total 900 ml Output Urine Total 2450 ml # Bowel Movements 2 Exam HEENT pupils are reactive Neck is supple CV is S1-S2 regular rate and rhythm Has been diminished breath sounds bases GI positive posterior bowel sound Extremity no edema UTILIZATION MANAGEMENT RN moving all four extremities. General Appearance: Alert, Oriented X3 Cardiovascular: Regular rate, Normal S1, Normal S2 Extremities: No clubbing Neuro: Normal speech Medications Current Medications Medications Dose Ordered Sig/Bennie Route Start Time Stop Time Status Last Admin Dose Admin Sodium Chloride 10 ml Q8HR IV 01/19/25 06:00 01/21/25 14:00 10 ML Nitroglycerin 0.4 mg Q5MINP PRN SL 01/19/25 04:00 Meropenem 50 ml @ 17 mls/hr Q8HR IV 01/19/25 06:00 01/21/25 15:04 17 MLS/HR Vancomycin HCl 0 ml @ 0 mls/hr UD IV 01/19/25 04:15 Pantoprazole Sodium 40 mg DAILY IV 01/20/25 10:00 01/21/25 10:30 40 MG Enoxaparin Sodium 40 mg DAILY SC 01/20/25 10:00 01/21/25 10:31 40 MG Furosemide 20 mg BIDD IV 01/19/25 18:00 01/20/25 17:36 20 MG Lactulose 30 ml BID PO 01/19/25 10:00 01/20/25 22:23 30 ML Acetaminophen/ Hydrocodone Bitart 1 tab Q6HP PRN PO 01/20/25 10:30 01/20/25 11:31 1 TAB Morphine Sulfate 1 mg Q4HP PRN IV 01/20/25 10:30 Dextrose 1,000 ml @ 100 mls/hr Q10H IV 01/21/25 12:00 Vancomycin HCl 150 ml @ 150 mls/hr Q16H IV 01/21/25 15:45 01/21/25 17:14 150 MLS/HR Laboratory Results Laboratory Tests 01/20/25 05:47 01/21/25 08:55 Urinalysis Test 01/19/25 01:21 Urine Color Yellow (Yellow) Urine Clarity Turbid (Clear) H Urine pH 5.5 (5.0-9.0) Urine Specific [place] 1.027 (1.001-1.035) Urine Protein 1+ (Negative) H Urine Ketones 1+ (Negative) H Urine Blood 1+ /uL (Negative) H Urine Nitrite Negative (Negative) Urine Bilirubin Negative (Negative) Urine Urobilinogen Normal mg/dL (Negative) Urine Leukocyte Esterase Trace /uL (Negative) Urine RBC 1 /hpf (0 - 4) Urine Microscopic WBC 11 /HPF (0-5) H Urine Squamous Epithelial Cells Few /hpf (<5) Urine Bacteria Many /hpf (None Seen) H Urine Mucus Few (None Seen) Urine Yeast (Budding) Occasional /hpf (None Urine Glucose Normal mg/dL (Normal) Microbiology Microbiology Date/Time Source Procedure Growth Status 01/20/25 20:20 Sputum Gram Stain - Final Resulted 01/20/25 20:20 Sputum Respiratory Culture - Preliminary Resulted 01/20/25 11:51 Leg Left Gram Stain - Final Resulted 01/20/25 11:51 Leg Left Wound Culture - Preliminary Resulted 01/19/25 08:00 Voided Urine Urine Culture - Final Escherichia coli Complete 01/19/25 04:07 Blood Blood Culture - Preliminary NO GROWTH AFTER 48 HOURS OF INCUBATION. Resulted Assessment/Plan Assessment/Plan 89-year-old female with a known history of cognitive decline, hypertension, diabetes mellitus type 2, previous history of depression in his has been with the hospital with a fall and generalized weakness found to have 1. Status post mechanical fall 2. Gram-negative UTI 3. Suspected aspiration pneumonia 4. Alzheimer dementia 5. Hypotension 6. Diabetes mellitus type 2 7. History of depression currently not in decompensation 8. Nodular liver/liver cirrhosis -continue IV antibiotics , physical therapy evaluation and treatment. Plan discussed with: Patient, Other My Orders Orders - PRINCESS ARTIS MD Procedure Category Date Status Time D5w 5% (Dextrose 5%) PHA 01/21/25 In Process 12:00 Cardiac DIET 01/21/25 Transmitted Diet-2gna,Lofat,Lochol Lunch Rt Upper Dvt US 01/21/25 Taken 17:16 Date of Service: Jan 21, 2025 Billing Provider: PRINCESS ARTIS MD Common Visit Codes: [id number] INP/OBS CARE(MOD) PRINCESS ARTIS MD Jan 21, 2025 19:17
--- NOTE | 2025-01-21 20:43 | DVH ---
RIGHT Upper Extremity Venous Duplex Clinical History: redness an swelling Comparison: None Technique: Duplex doppler evaluation of the venous system of the RIGHT lower neck and upper extremity including color doppler and spectral/pulsed waveform analysis was performed. Findings: The internal jugular vein demonstrates appropriate compressibility and waveform variability. The subclavian vein is patent on color Doppler evaluation without intraluminal thrombus and demonstra suraj waveform variability. The visualized portion of the brachiocephalic vein is patent on color Doppler evaluation without intr aluminal thrombus and demonstrates waveform variability. The axillary vein demonstrates appropriate compressibility and waveform variability. The brachial veins demonstrate appropriate compressibility and patency on Doppler evaluation. The basilic vein demonstrates appropriate compressibility and patency on Doppler evaluation. The cephalic vein demonstrates appropriate compressibility and patency on Doppler evaluation. Impression: 1. No venous thrombus identified in the RIGHT upper extremity vessels evaluated above.
[2025-01-22] VITALS (8 sets, daily range): BP systolic 116–155; BP diastolic 59–82; PULSE 90–106; RESP 16–20; TEMP 96.2–98.3; O2SAT 96–99
[2025-01-22 15:24] LABS: Chloride 105 mmol/L (98-107); Sodium 141 mmol/L (136-145)
[2025-01-22 15:25] LABS: Anion Gap 7 (5-15); Carbon Dioxide 29 mmol/L (20-31)
[2025-01-22 15:26] LABS: Calcium 8.6 mg/dL (8.7-10.4); Potassium 2.9 mmol/L (3.5-5.1)
[2025-01-22 15:30] LABS: BUN/Creatinine Ratio 25.5 (10.0-20.0); Blood Urea Nitrogen 14 mg/dL (9-23); Glucose 159 mg/dL (74-106)
[2025-01-22 16:26] LABS: Base Excess 2.1 mmol/L (-2.0-3.0)
--- NOTE | 2025-01-22 19:10 | DVHPN2 ---
Subjective This is a follow up on an 89-year-old female with a known history of hypertension diabetes mellitus type 2 history of depression came to the hospital with a status post fall. Patient was diagnosed with a possible aspiration pneumonia, E coli UTI, liver cirrhosis. Daughter is at bedside updated regarding current plan of care all the labs imaging finding and plan of care discussed with the heart has been. Reviewed: Care Plan, H&P, Labs, Medications, Previous Orders Changes from previous H/P or p: No Changes General: Per HPI Objective Vitals Vital Signs Date Time Temp Pulse Resp B/P (MAP) Pulse Ox O2 Delivery O2 Flow Rate FiO2 01/22/25 17:50 119/60 01/22/25 17:00 102 16 99 01/22/25 13:05 97.4 97.4 01/22/25 08:10 Nasal Cannula* 4 36 Intake/Output Intake and Output 01/22/25 07:00 Intake Total 1054 ml Output Total 650 ml Balance 404 ml Intake Oral 1004 ml IV Total 50 ml Output Urine Total 650 ml # Bowel Movements 4 Exam HEENT pupils are reactive Neck is supple CV is S1-S2 regular rate and rhythm Has been diminished breath sounds bases GI positive posterior bowel sound Extremity no edema PROJECT GEOLOGIST moving all four extremities. General Appearance: Alert, Oriented X3 Cardiovascular: Regular rate, Normal S1, Normal S2 Extremities: No clubbing Neuro: Normal speech Medications Current Medications Medications Dose Ordered Sig/Bennie Route Start Time Stop Time Status Last Admin Dose Admin Sodium Chloride 10 ml Q8HR IV 01/19/25 06:00 01/22/25 14:13 10 ML Nitroglycerin 0.4 mg Q5MINP PRN SL 01/19/25 04:00 Pantoprazole Sodium 40 mg DAILY IV 01/20/25 10:00 01/22/25 10:15 40 MG Enoxaparin Sodium 40 mg DAILY SC 01/20/25 10:00 01/22/25 10:15 40 MG Furosemide 20 mg BIDD IV 01/19/25 18:00 01/22/25 17:50 20 MG Lactulose 30 ml BID PO 01/19/25 10:00 01/21/25 22:06 30 ML Acetaminophen/ Hydrocodone Bitart 1 tab Q6HP PRN PO 01/20/25 10:30 01/20/25 11:31 1 TAB Morphine Sulfate 1 mg Q4HP PRN IV 01/20/25 10:30 Ceftriaxone Sodium 50 ml @ 100 mls/hr DAILY@09 IV 01/23/25 09:00 Laboratory Results Laboratory Tests 01/21/25 08:55 01/22/25 14:48 Chemistry Test 01/22/25 14:48 Calcium Level 8.6 mg/dL (8.7-10.4) L Urinalysis Test 01/19/25 01:21 Urine Color Yellow (Yellow) Urine Clarity Turbid (Clear) H Urine pH 5.5 (5.0-9.0) Urine Specific [facility] 1.027 (1.001-1.035) Urine Protein 1+ (Negative) H Urine Ketones 1+ (Negative) H Urine Blood 1+ /uL (Negative) H Urine Nitrite Negative (Negative) Urine Bilirubin Negative (Negative) Urine Urobilinogen Normal mg/dL (Negative) Urine Leukocyte Esterase Trace /uL (Negative) Urine RBC 1 /hpf (0 - 4) Urine Microscopic WBC 11 /HPF (0-5) H Urine Squamous Epithelial Cells Few /hpf (<5) Urine Bacteria Many /hpf (None Seen) H Urine Mucus Few (None Seen) Urine Yeast (Budding) Occasional /hpf (None Urine Glucose Normal mg/dL (Normal) Blood Gas Results Test 01/22/25 16:14 Arterial Blood pH 7.397 (7.350-7.450) FiO2 % 21.0 Microbiology Microbiology Date/Time Source Procedure Growth Status 01/20/25 20:20 Sputum Gram Stain - Final Resulted 01/20/25 20:20 Sputum Respiratory Culture - Preliminary Resulted 01/20/25 11:51 Leg Left Gram Stain - Final Resulted 01/20/25 11:51 Leg Left Wound Culture - Preliminary Resulted 01/19/25 08:00 Voided Urine Urine Culture - Final Escherichia coli Complete 01/19/25 04:07 Blood Blood Culture - Preliminary NO GROWTH AFTER 72 HOURS OF INCUBATION. Resulted Assessment/Plan Assessment/Plan 89-year-old female with a known history of cognitive decline, hypertension, diabetes mellitus type 2, previous history of depression in his has been with the hospital with a fall and generalized weakness found to have 1. Status post mechanical fall 2. Gram-negative UTI 3. Suspected aspiration pneumonia 4. Alzheimer dementia 5. Hypotension 6. Diabetes mellitus type 2 7. History of depression currently not in decompensation 8. Nodular liver/liver cirrhosis 9. Bilateral hydronephrosis rule out obstructive uropathy -urology consultation -discontinue vancomycin and Invanz, start IV Rocephin, physical therapy evaluation and treatment. -discharge plan. Plan discussed with: Patient, Daughter, Other My Orders Orders - PRINCESS ARTIS MD Procedure Category Date Status Time Complete Blood Count LAB 01/23/25 Verified 06:00 Basic Metabolic Panel LAB 01/23/25 Verified 06:00 Magnesium LAB 01/23/25 Verified 06:00 Ct Ab Pel Wo Con-No CT 01/22/25 Logged Oral Or Iv 15:40 Ceftriaxone 1gm/50ml PHA 01/23/25 In Process D5w (Rocephin) 09:00 Basic Metabolic Panel LAB 01/23/25 Verified 04:00 Abg W/ Co-Ox RT 01/22/25 Logged 16:21 * Urology Consult CONS 01/22/25 Transmitted 19:04 Date of Service: Jan 22, 2025 Billing Provider: PRINCESS ARTIS MD Common Visit Codes: [id number] INP/OBS CARE(MOD) PRINCESS ARTIS MD Jan 22, 2025 19:10
--- NOTE | 2025-01-22 22:21 | DVH ---
Exam: CT CT AB PEL WO CON-NO ORAL OR IV History: KIDNEY STONES Comparison Study: None TECHNIQUE: Multidetector CT of the abdomen was performed from lung bases to pubic symphysis. Imaging was performed without IV contrast. Axial, coronal and sagittal multiplanar reformats were obtained fr om the axial data set by the technologist. Radiation Dose Information: CT Dose: CTDI volume is 25.74 mGy. Dose-length product is 1285.34 mGy*cm FINDINGS: Evaluation of solid organs is limited due to lack of intravenous contrast use. Findings: Lung Bases: Small bibasilar pleural effusions with pulmonary consolidation and atelectasis in the pos terior costophrenic angle on the left. Normal heart size. No pleural or pericardial effusion. Liver: The liver is normal in size. No focal lesions. Gallbladder and Biliary Tree: Unremarkable Spleen: Unremarkable Pancreas: The pancreas is grossly normal in appearance. Adrenal Glands: Unremarkable Kidneys: Kidneys are grossly normal without calculi or hydronephrosis. 18 mm round calcification in t he rims of the lesion near the gary of the right kidney. Questionable aneurysm of the right renal art adria. Recommend repeat study with IV contrast. Punctate left renal calculi mild bilateral hydronephros is. Bladder: Emerson catheter in the bladder. Bowel: The stomach is grossly normal in appearance. Small bowel and colon are normal in caliber and d istribution. The appendix is not visualized; however, no secondary findings of acute appendicitis id entified. Ascites: Absent Lymphadenopathy: No mesenteric, retroperitoneal or periportal lymphadenopathy. Abdominal Wall and Mesentery: Unremarkable. Vasculature: The visualized abdominal aorta is normal in size and caliber. Evaluation of abdominal a nd pelvic vessels is limited due to lack of intravenous contrast. Pelvic Organs: Unremarkable Musculoskeletal: No aggressive focal bony lesions, acute fractures or dislocation. Soft tissues: Unremarkable IMPRESSION: 1. Punctate left renal calculus with mild bilateral hydronephrosis. 2. 15 mm round calcified rim mass near the right renal gary may represent a calcified renal artery an eurysm recommend repeat study with IV contrast. 3. 5-6 mm calculus possibly in the distal right ureter (series 2, image 57) Radiation optimization: All CT scans at this facility use at least one of these dose optimization weston hniques: automated exposure control mA and/or kV adjustment per patient size (includes targeted exam s where dose is matched to clinical indication) or iterative reconstruction.
[2025-01-22] MEDS: POTASSIUM CHL 20MEQ/100ML 100 ML IV SCH (23:21)
[2025-01-22] MEDS ORDERED: VANCOMYCIN 750mg/150ml 150 ML IV SCH (23:30)
[2025-01-23] VITALS (8 sets, daily range): BP systolic 133–153; BP diastolic 58–76; PULSE 102–111; RESP 17–20; TEMP 96.9–98.1; O2SAT 93–96
[2025-01-23 07:05] LABS: Hematocrit 45.7 % (36.0-46.0); Hemoglobin 14.9 g/dL (12.2-16.2); Mean Corpuscular Hemoglobin 29.6 pg (28.0-32.0); Mean Corpuscular Volume 90.9 fL (80.0-100.0); Nucleated Red Blood Cells % 0.1 %
[2025-01-23 07:06] LABS: Chloride 104 mmol/L (98-107)
[2025-01-23 07:07] LABS: Anion Gap 6 (5-15); Calcium 9.0 mg/dL (8.7-10.4)
[2025-01-23 07:12] LABS: BUN/Creatinine Ratio 27.8 (10.0-20.0); Blood Urea Nitrogen 15 mg/dL (9-23); Glucose 97 mg/dL (74-106)
[2025-01-23 07:13] LABS: Carbon Dioxide 36 mmol/L (20-31); Magnesium 1.6 mg/dL (1.6-2.6); Potassium 3.2 mmol/L (3.5-5.1); Sodium 146 mmol/L (136-145)
[2025-01-23] MEDS: cefTRIAXone 1GM/50ML D5W 50 ML IV SCH (09:35)
[2025-01-23] MEDS: IOHEXOL 300 MG/ML 100ML BOTTLE IJ ONE (15:02)
--- NOTE | 2025-01-23 15:46 | DVH ---
Exam: CT CT AB PEL WITH IV CON ONLY History: hydronephrosis Comparison Study: None TECHNIQUE: A digital drying oven attendant image was obtained. During the uneventful, intravenous administration of c ontrast material, multislice data acquisition was obtained through the abdomen and pelvis. The data s et was subsequently reconstructed into axial images. Images reviewed on a wrist examination is an exa mination of axial and multiplanar reformations using a variety of window levels and settings. RADIATION DOSE: DLP 1300.55 mGy.cm; CTDI vol 26.26 mGy. Findings: Lungs: Small bilateral pleural effusions with compressive atelectasis. Heart: No cardiomegaly or pericardial effusion. Liver: Unremarkable. Gallbladder: Unremarkable. Spleen: Unremarkable Pancreas: Atrophic pancreas Adrenals: Unremarkable Kidneys: Bilateral parapelvic cysts. Punctate nonobstructive left nephrolithiasis. No hydronephrosis . No distal ureteral calculi. Punctate density in the lower abdomen (axial image 58) is not within th e distal ureter. GI tract: Diverticulosis without evidence of acute diverticulitis. : The urinary bladder is decompressed via Emerson catheter. Vasculature: Calcified right renal artery aneurysm. Otherwise unremarkable Lymphadenopathy: Absent Peritoneum: No ascites Musculoskeletal: Moderate multilevel degenerative changes of the thoracolumbar spine Soft tissues: Mild anasarca. Impression: 1. No acute abdominopelvic abnormalities. 2. Bilateral parapelvic cysts and less likely hydronephrosis. 3. Punctate nonobstructive nephrolithiasis. No distal ureteral calculi. 4. Diverticulosis without evidence of acute diverticulitis. 5. Small bilateral pleural effusions. 6. Mild anasarca.
--- NOTE | 2025-01-23 17:03 | DVHINCON2 ---
Date of service: Jan 23, 2025 Referring Physician Polina Reason for Consultation Hydronephrosis History of Present Illness 89 year old female BIBA presenting to the ED with chief complaint of wellness check and generalized weakness. EMS reports that the patient was previously called for today due to having a ground level fall, however, patient signed AMA to stay at home. EMS relays that family had visited her later on and found her on the ground in her own feces and with her home being a mess. EMS states they were called and patient has generalized weakness, but no other complaints. Patient notes that she wishes to discuss with her daughter what kind of work up can be done on her, but she agrees to some lab work to be performed. Patient denies any N/V/D, abdominal pain, chest pain, or SOB. Patient was tachycardic and tachypneic at arrival with a an oxygen saturation of 90% on room air. Patient was started on 2 L of O2 and O2 saturation improved to 97%. CT Scan reported bilateral hydronephrosis and possible ureteral stone. PATIENT: JAYSON CENTENO ACCT: [id number] UNIT: [id number] : 1935 LOC: [facility] ROOM / BED: [facility] / B AGE / SEX: 89 / F ADM STATUS: ADM IN SERVICE 1540 ORDERING PHYSICIAN: PRINCESS ARTIS MD PROCEDURE(s): ABPL - CT AB PEL WO CON-NO ORAL OR IV REASON: KIDNEY STONES ORDER NUMBER(s): [id number], ACCESSION NUMBER(s): [id number] Exam: CT CT AB PEL WO CON-NO ORAL OR IV History: KIDNEY STONES Comparison Study: None TECHNIQUE: Multidetector CT of the abdomen was performed from lung bases to pubic symphysis. Imaging was performed without IV contrast. Axial, coronal and sagittal multiplanar reformats were obtained from the axial data set by the technologist. Radiation Dose Information: CT Dose: CTDI volume is 25.74 mGy. Dose-length product is 1285.34 mGy*cm FINDINGS: Evaluation of solid organs is limited due to lack of intravenous contrast use. Findings: Lung Bases: Small bibasilar pleural effusions with pulmonary consolidation and atelectasis in the posterior costophrenic angle on the left. Normal heart siz e. No pleural or pericardial effusion. Liver: The liver is normal in size. No focal lesions. Gallbladder and Biliary Tree: Unremarkable Spleen: Unremarkable Pancreas: The pancreas is grossly normal in appearance. Adrenal Glands: Unremarkable Kidneys: Kidneys are grossly normal without calculi or hydronephrosis. 18 mm round calcification in the rims of the lesion near the gary of the right kidney. Questionable aneurysm of the right renal artery. Recommend repeat study with IV contrast. Punctate left renal calculi mild bilateral hydronephrosis. Bladder: Arora catheter in the bladder. Bowel: The stomach is grossly normal in appearance. Small bowel and colon are normal in caliber and distribution. The appendix is not visualized; however, no secondary findings of acute appendicitis identified. Ascites: Absent Lymphadenopathy: No mesenteric, retroperitoneal or periportal lymphadenopathy. Abdominal Wall and Mesentery: Unremarkable. Vasculature: The visualized abdominal aorta is normal in size and caliber. Evaluation of abdominal and pelvic vessels is limited due to lack of intravenous contrast. Pelvic Organs: Unremarkable Musculoskeletal: No aggressive focal bony lesions, acute fractures or dislocation. Soft tissues: Unremarkable IMPRESSION: 1. Punctate left renal calculus with mild bilateral hydronephrosis. 2. 15 mm round calcified rim mass near the right renal gary may represent a calcified renal artery aneurysm recommend repeat study with IV contrast. 3. 5-6 mm calculus possibly in the distal right ureter (series 2, image 57) Past Medical History HTN, Unknown Past Surgical History Unknown JACQU[employer]PET [employer]AVER History: Denies all [employer] Hx Family History: Cancer of mouth G8 MOTHER Diabetes mellitus G8 MOTHER G8 FATHER Allergies: Coded Allergies: No Known Drug Allergy (Verified Allergy, Unknown, 01/18/25) Current Medications Current Medications Medications (Trade) Dose Ordered Sig/Bennie Route PRN Reason Start Time Stop Time Status Last Admin Vancomycin HCl 150 ml @ 150 mls/hr Q16H IV 01/22/25 23:30 01/22/25 15:50 DC Ceftriaxone Sodium 50 ml @ 100 mls/hr DAILY@09 IV 01/23/25 09:00 01/23/25 09:35 Potassium Chloride 100 ml @ 50 mls/hr Q2H IV 01/22/25 23:00 01/23/25 04:59 DC 01/23/25 03:31 Review of Systems Constitutional: reports: fatigue, malaise, weakness; denies: chills, diaphoresis, fever, sweats, others EENTM: denies: blurred vision, double vision, ear bleeding, ear discharge, ear drainage, ear pain, ear ringing, eye pain, eye redness, hearing loss, mouth pain, mouth swelling, nasal discharge, nose bleeding, nose congestion, nose pain, photophobia, tearing, throat pain, throat swelling, voice changes, others Respiratory: denies: cough, hemoptysis, orthopnea, SOB at rest, shortness of breath, SOB with excertion, stridor, wheezing, others Cardiovascular: denies: chest pain, dizzy spells, diaphoresis, Dyspnea on exertion, edema, irregular heart beat, left arm pain, lightheadedness, palpitations, PND, syncope, others Gastrointestinal: denies: abdomen distended, abdominal pain, blood streaked bowels, constipated, diarrhea, dysphagia, difficulty swallowing, hematemesis, melena, nausea, poor appetite, poor fluid intake, rectal bleeding, rectal pain, vomiting, others Genitourinary: denies: abnormal vagina bleeding, burning, dyspareunia, dysuria, flank pain, frequency, hematuria, incontinence, pain, , vagina disch arge, urgency, others Neurological: denies: dizziness, fainting, headache, left sided numbness, left sided weakness, numbness, paresthesia, pre-existing deficit, right sided numbness, right sided weakness, seizure, speech problems, tingling, tremors, weakness, others Musculoskeletal: denies: back pain, gout, joint pain, joint swelling, muscle pain, muscle stiffness, neck pain, others Integumetry: denies: bruises, change in color, change in hair/nails, dryness, laceration, lesions, lumps, rash, wounds, others Allergic/Immunocompromised: denies: Difficulty Healing, Frequent Infections, Hives, Itching, others Hematologic/Lymphatic: denies: anemia, blood clots, easy bleeding, easy bruising, swollen glands, others Endocrine: denies: excessive hunger, excessive sweating, excessive thirst, excessive urination, flushing, intolerance to cold, intolerance to heat, unexplained weight gain, unexplained weight loss, others Psychiatric: denies: anxiety, bipolar disorder, depression, hopeless, panic disorder, schizophrenia, sleepless, suicidal, others All Other Systems: Reviewed and Negative Vital Signs Vital Signs Date Time Temp Pulse Resp B/P (MAP) Pulse Ox O2 Delivery O2 Flow Rate FiO2 01/23/25 09:00 97.9 102 20 134/64 (87) 94 97.9 01/23/25 08:00 Nasal Cannula* 4 36 Physical Exam General Appearance: Mild Distress (Patient had some mild distress at time of evaluation due to generalized pain concerns, but patient appears to be in poor overall health.), Obese HEENT: Normal ENT Inspection, Pharynx Normal, TMs Normal Neck: Full Range of Motion, Non-Tender, Normal, Normal Inspection Respiratory: Chest Non-Tender, No Accessory Muscle Use, Normal Breath Sounds, Other (Patchy rhonchi appreciated globally.) Cardiovascular: No Edema, No JVD, No Murmur, No Gallop, Normal Peripheral Pulses, Tachycardia Breast Exam: Deferred Gastrointestinal: No Organomegaly, Non Tender, No Pulsatile Mass, Normal Bowel Sounds, Soft Genitalia: Arora catheter in place. Urine clear Pelvic: Deferred Rectal: Deferred Extremities: Tender (Patient has a general nonspecific diffused tenderness to palpation throughout the pelvic region.) Neurologic: Alert Cerebellar Function: NOT DONE Reflexes: NOT DONE Skin: Dry, Normal Color, Warm Lymphatic: No Adenopathy Labs/Diagnostic Data Labs Test 01/23/25 14:15 01/23/25 06:37 01/22/25 16:14 01/20/25 05:47 Range/Units Creatinine 0.49 L 0.550-1.02 mg/dL Glomerular Filtration Rate Calc 91 >90 mL/min Vancomycin Level Trough 7.0 5-10 ug/mL White Blood Count 5.0 4.4-10.8 10^3/uL Red Blood Count 5.03 4.0-5.20 10^6/uL Hemoglobin 14.9 12.2-16.2 g/dL Hematocrit 45.7 36.0-46.0 % Mean Corpuscular Volume 90.9 80.0-100.0 fL Mean Corpuscular Hemoglobin 29.6 28.0-32.0 pg Mean Corpuscular Hemoglobin Concent 32.5 32.0-36.0 g/dL Red Cell Distribution Width 15.9 H 11.8-14.3 % Platelet Count 253 140-450 10^3/uL Mean Platelet Volume 7.9 6.9-10.8 fL Neutrophils (%) (Auto) 66.8 37.0-80.0 % Lymphocytes (%) (Auto) 19.3 10.0-50.0 % Monocytes (%) (Auto) 10.3 0.0-12.0 % Eosinophils (%) (Auto) 3.1 0.0-7.0 % Basophils (%) (Auto) 0.5 0.0-2.0 % Neutrophils # (Auto) 3.3 1.6-8.6 10 ^3/uL Lymphocytes # (Auto) 1.0 0.4-5.4 10 ^3/uL Monocytes # (Auto) 0.5 0-1.3 10 ^3/uL Eosinophils # (Auto) 0.2 0-0.8 10 ^3/uL Basophils # (Auto) 0 0-0.2 10 ^3/uL Nucleated Red Blood Cells 0.1 % Sodium Level 146 #H 136-145 mmol/L Potassium Level 3.2 L 3.5-5.1 mmol/L Chloride Level 104 98-107 mmol/L Carbon Dioxide Level 36 H 20-31 mmol/L Anion Gap 6 5-15 Blood Urea Nitrogen 15 9-23 mg/dL BUN/Creatinine Ratio 27.8 H 10.0-20.0 Serum Glucose 97 74-106 mg/dL Calcium Level 9.0 8.7-10.4 mg/dL Magnesium Level 1.6 1.6-2.6 mg/dL Blood Gas Specimen Type Arterial Blood Gas Sample Site Right radial Blood Gas Patient Temperature 37.0 Arterial Blood Date Drawn [id number] Arterial Blood pH 7.397 7.350-7.450 Arterial Blood Partial Pressure CO2 45.8 H 32.0-45.0 mmHg Arterial Blood Partial Pressure O2 51.5 *L 83.0-108.0 mmHg Arterial Blood HCO3 27.5 21.0-28.0 mmol/L Arterial Blood Oxygen Saturation 86.0 L 94.0-98.0 % Arterial Blood Base Excess 2.1 -2.0-3.0 mmol/L Arterial Blood Oxyhemoglobin 84.5 L 94.0-98.0 % Arterial Blood Carboxyhemoglobin 1.4 0.5-1.5 % Arterial Blood Methemoglobin 0.4 0.0-1.5 % Jackson Test Yes Blood Gas Total Hemoglobin 14.80 12.0-16.0 g/dL Blood Gas Liter Flow 0.00 Blood Gas Modality Room air FiO2 % 21.0 Blood Gas Critical Value Read Back Yes Blood Gas Notified Whom hanane Mcgee Blood Gas Notified Time [id number] Blood Gas Notified By Civil Design Specialist sanjuana moon Total Bilirubin 0.7 0.2-1.0 mg/dL Aspartate Amino Transferase (AST) 63 H 13-40 U/L Alanine Aminotransferase (ALT) 26 7-40 U/L Alkaline Phosphatase 91 46-116 U/L Total Protein 5.9 5.7-8.2 g/dL Albumin 3.1 L 3.2-4.8 g/dL Test 01/19/25 11:49 01/19/25 09:25 01/19/25 08:05 01/19/25 04:07 Range/Units Lactic Acid Level 1.0 0.4-2.0 mmol/L B-Type Natriuretic Peptide 597.68 0-100 pg/mL Influenza Type A Antigen Negative Negative Influenza Type B Antigen Negative Negative SARS-CoV-2 Antigen (Rapid) Negative NEGATIVE Creatine Kinase 652 H 34-145 U/L Thyroid Stimulating Hormone (TSH) 1.55 0.55-4.78 uIU/mL Hepatitis A IgM Antibody Negative Hepatitis B Surface Antigen Negative Negative Hepatitis B Core IgM Antibody Negative Negative Hepatitis C Antibody Negative Negative Test 01/19/25 01:21 01/19/25 00:19 01/19/25 00:18 01/18/25 21:10 Range/Units Urine Color Yellow Yellow Urine Clarity Turbid H Clear Urine pH 5.5 5.0-9.0 Urine Specific [facility] 1.027 1.001-1.035 Urine Protein 1+ H Negative Urine Ketones 1+ H Negative Urine Blood 1+ H Negative /uL Urine Nitrite Negative Negative Urine Bilirubin Negative Negative Urine Urobilinogen Normal Negative mg/dL Urine Leukocyte Esterase Trace Negative /uL Urine RBC 1 0 - 4 /hpf Urine Microscopic WBC 11 H 0-5 /HPF Urine Squamous Epithelial Cells Few <5 /hpf Urine Bacteria Many H None Seen /hpf Urine Mucus Few None Seen Urine Yeast (Budding) Occasional None Seen /hpf Urine Glucose Normal Normal mg/dL POC Glucose 130 H 70-106 mg/dl Troponin I High Sensitivity 182 *H </=34 ng/L D-Dimer, Quantitative 5.29 H 0.0-0.49 mg/L FEU Ammonia 74 H 11-32 umol/L Microbiology Date/Time Source Procedure Growth Status 01/20/25 20:20 Sputum Gram Stain - Final Resulted 01/20/25 20:20 Sputum Respiratory Culture - Preliminary Resulted 01/20/25 11:51 Leg Left Gram Stain - Final Complete 01/20/25 11:51 Wound Culture - Final Staphylococcus aureus Complete 01/19/25 08:00 Voided Urine Urine Culture - Final Escherichia coli Complete 01/19/25 04:07 Blood Blood Culture - Preliminary NO GROWTH AFTER 72 HOURS OF INCUBATION. Resulted PATIENT: JAYSON CENTENO ACCT: [id number] UNIT: [id number] : 1935 LOC: [facility] RO[facility] / BED: 0220T / B AGE / SEX: 89 / F ADM STATUS: ADM IN SERVICE 1235 ORDERING PHYSICIAN: GLENDY MARIANO NP PROCEDURE(s): ABPLIV - CT AB PEL WITH IV CON ONLY REASON: hydronephrosis ORDER NUMBER(s): [id number], ACCESSION NUMBER(s): [id number] Exam: CT CT AB PEL WITH IV CON ONLY History: hydronephrosis Comparison Study: None TECHNIQUE: A digital generator mechanic image was obtained. During the uneventful, intravenous administration of contrast material, multislice data acquisition was obtained through the abdomen and pelvis. The data set was subsequently reconstructed into axial images. Images reviewed on a wrist examination is an examination of axial and multiplanar reformations using a variety of window levels and settings. RADIATION DOSE: DLP 1300.55 mGy.cm; CTDI vol 26.26 mGy. Findings: Lungs: Small bilateral pleural effusions with compressive atelectasis. Heart: No cardiomegaly or pericardial effusion. Liver: Unremarkable. Gallbladder: Unremarkable. Spleen: Unremarkable Pancreas: Atrophic pancreas Adrenals: Unremarkable Kidneys: Bilateral parapelvic cysts. Punctate nonobstructive left nephro lithiasis. No hydronephrosis. No distal ureteral calculi. Punctate density in the lower abdomen (axial image 58) is not within the distal ureter. GI tract: Diverticulosis without evidence of acute diverticulitis. : The urinary bladder is decompressed via Arora catheter. Vasculature: Calcified right renal artery aneurysm. Otherwise unremarkable Lymphadenopathy: Absent Peritoneum: No ascites Musculoskeletal: Moderate multilevel degenerative changes of the thoracolumbar spine Soft tissues: Mild anasarca. Impression: 1. No acute abdominopelvic abnormalities. 2. Bilateral parapelvic cysts and less likely hydronephrosis. 3. Punctate nonobstructive nephrolithiasis. No distal ureteral calculi. 4. Diverticulosis without evidence of acute diverticulitis. 5. Small bilateral pleural effusions. 6. Mild anasarca. ATED BY: JEWELL CRUZ DO DICTATED DATE/TIME: 01/23/25 1543 SIGNED BY: JEWELL CRUZ DO SIGNED DATE/TIME: 01/23/25 154 CC: Assessment Bilateral hydronephrosis --> extrarenal pelvices Punctate nonobstructing renal stones Plan/Recommendation November d/c arora when ambulatory F/U with at [facility] Plan discussed with: Patient, Other DIRK JAMES MD Jan 23, 2025 17:03
[2025-01-23] MEDS ORDERED: AUG875T PO (17:10)
--- NOTE | 2025-01-23 17:12 | DVHDS2 ---
Discharge Summary Date of Admission Jan 19, 2025 at 03:54 Date of Discharge: Jan 23, 2025 Labs/Diagnostic Data: Laboratory Results Test 01/23/25 14:15 01/23/25 06:37 01/22/25 16:14 01/20/25 05:47 Creatinine 0.49 mg/dL (0.550-1.02) Glomerular Filtration Rate Calc 91 mL/min (>90) Vancomycin Level Trough 7.0 ug/mL (5-10) White Blood Count 5.0 10^3/uL (4.4-10.8) Red Blood Count 5.03 10^6/uL (4.0-5.20) Hemoglobin 14.9 g/dL (12.2-16.2) Hematocrit 45.7 % (36.0-46.0) Mean Corpuscular Volume 90.9 fL (80.0-100.0) Mean Corpuscular Hemoglobin 29.6 pg (28.0-32.0) Mean Corpuscular Hemoglobin Concent 32.5 g/dL (32.0-36.0) Red Cell Distribution Width 15.9 % (11.8-14.3) Platelet Count 253 10^3/uL (140-450) Mean Platelet Volume 7.9 fL (6.9-10.8) Neutrophils (%) (Auto) 66.8 % (37.0-80.0) Lymphocytes (%) (Auto) 19.3 % (10.0-50.0) Monocytes (%) (Auto) 10.3 % (0.0-12.0) Eosinophils (%) (Auto) 3.1 % (0.0-7.0) Basophils (%) (Auto) 0.5 % (0.0-2.0) Neutrophils # (Auto) 3.3 10 ^3/uL (1.6-8.6) Lymphocytes # (Auto) 1.0 10 ^3/uL (0.4-5.4) Monocytes # (Auto) 0.5 10 ^3/uL (0-1.3) Eosinophils # (Auto) 0.2 10 ^3/uL (0-0.8) Basophils # (Auto) 0 10 ^3/uL (0-0.2) Nucleated Red Blood Cells 0.1 % Sodium Level 146 mmol/L (136-145) Potassium Level 3.2 mmol/L (3.5-5.1) Chloride Level 104 mmol/L (98-107) Carbon Dioxide Level 36 mmol/L (20-31) Anion Gap 6 (5-15) Blood Urea Nitrogen 15 mg/dL (9-23) BUN/Creatinine Ratio 27.8 (10.0-20.0) Serum Glucose 97 mg/dL (74-106) Calcium Level 9.0 mg/dL (8.7-10.4) Magnesium Level 1.6 mg/dL (1.6-2.6) Blood Gas Specimen Type Arterial Blood Gas Sample Site Right radial Blood Gas Patient Temperature 37.0 Arterial Blood Date Drawn [id number] Arterial Blood pH 7.397 (7.350-7.450) Arterial Blood Partial Pressure CO2 45.8 mmHg (32.0-45.0) Arterial Blood Partial Pressure O2 51.5 mmHg (83.0-108.0) Arterial Blood HCO3 27.5 mmol/L (21.0-28.0) Arterial Blood Oxygen Saturation 86.0 % (94.0-98.0) Arterial Blood Base Excess 2.1 mmol/L (-2.0-3.0) Arterial Blood Oxyhemoglobin 84.5 % (94.0-98.0) Arterial Blood Carboxyhemoglobin 1.4 % (0.5-1.5) Arterial Blood Methemoglobin 0.4 % (0.0-1.5) Jackson Test Yes Blood Gas Total Hemoglobin 14.80 g/dL (12.0-16.0) Blood Gas Liter Flow 0.00 Blood Gas Modality Room air FiO2 % 21.0 Blood Gas Critical Value Read Back Yes Blood Gas Notified Whom hanane Mcgee Blood Gas Notified Time [id number] Blood Gas Notified By Time Study Technologist sanjuana moon Total Bilirubin 0.7 mg/dL (0.2-1.0) Aspartate Amino Transferase (AST) 63 U/L (13-40) Alanine Aminotransferase (ALT) 26 U/L (7-40) Alkaline Phosphatase 91 U/L (46-116) Total Protein 5.9 g/dL (5.7-8.2) Albumin 3.1 g/dL (3.2-4.8) Test 01/19/25 11:49 01/19/25 09:25 01/19/25 08:05 01/19/25 04:07 Lactic Acid Level 1.0 mmol/L (0.4-2.0) B-Type Natriuretic Peptide 597.68 pg/mL (0-100) Influenza Type A Antigen Negative (Negative) Influenza Type B Antigen Negative (Negative) SARS-CoV-2 Antigen (Rapid) Negative (NEGATIVE) Creatine Kinase 652 U/L (34-145) Thyroid Stimulating Hormone (TSH) 1.55 uIU/mL (0.55-4.78) Hepatitis A IgM Antibody Negative Hepatitis B Surface Antigen Negative (Negative) Hepatitis B Core IgM Antibody Negative (Negative) Hepatitis C Antibody Negative (Negative) Test 01/19/25 01:21 01/19/25 00:19 01/19/25 00:18 01/18/25 21:10 Urine Color Yellow (Yellow) Urine Clarity Turbid (Clear) Urine pH 5.5 (5.0-9.0) Urine Specific [place] 1.027 (1.001-1.035) Urine Protein 1+ (Negative) Urine Ketones 1+ (Negative) Urine Blood 1+ /uL (Negative) Urine Nitrite Negative (Negative) Urine Bilirubin Negative (Negative) Urine Urobilinogen Normal mg/dL (Negative) Urine Leukocyte Esterase Trace /uL (Negative) Urine RBC 1 /hpf (0 - 4) Urine Microscopic WBC 11 /HPF (0-5) Urine Squamous Epithelial Cells Few /hpf (<5) Urine Bacteria Many /hpf (None Seen) Urine Mucus Few (None Seen) Urine Yeast (Budding) Occasional /hpf (None Urine Glucose Normal mg/dL (Normal) POC Glucose 130 mg/dl (70-106) Troponin I High Sensitivity 182 ng/L (</=34) D-Dimer, Quantitative 5.29 mg/L FEU (0.0-0.49) Ammonia 74 umol/L (11-32) Other Laboratory Tests 01/23/25 14:15 01/23/25 06:37 Brief Hx & Hospital Course: 89-year-old female with a known history of cognitive decline, hypertension, diabetes mellitus type 2, previous history of depression in his has been with the hospital with a fall and generalized weakness found to have status post mechanical fall. Patient was found to have Gram-negative UTI has been as suspected aspiration pneumonia. Patient has left leg wound shows Staph aureus pansensitive. Patient was treated with IV antibiotics which will be switched to p.o. antibiotics. Patient has a very physically deconditioned may need home health home safety evaluation. I talked to daughter at bedside the other day who is willing to take her home once she is stable. 1. Status post mechanical fall 2. Gram-negative UTI 3. Suspected aspiration pneumonia 4. Alzheimer dementia 5. Hypotension 6. Diabetes mellitus type 2 7. History of depression currently not in decompensation 8. Nodular liver/liver cirrhosis 9. Bilateral hydronephrosis rule out obstructive uropathy status post Emerson catheter placement. Condition at Discharge: Stable Final Diagnosis/Problems List 89-year-old female with a known history of cognitive decline, hypertension, diabetes mellitus type 2, previous history of depression in his has been with the hospital with a fall and generalized weakness found to have 1. Status post mechanical fall 2. Gram-negative UTI 3. Suspected aspiration pneumonia 4. Alzheimer dementia 5. Hypertension 6. Diabetes mellitus type 2 7. History of depression currently not in decompensation 8. Nodular liver/liver cirrhosis 9. Bilateral hydronephrosis rule out obstructive uropathy Discharge Disposition: Home with Health Services SNF Discharge Will this Physician continue t: No Discharge Instruct/Medications Diet: Cardiac 2g Na,low cholest Diet comment: 1999 ADA diet Activity: No Restrictions, As Tolerated Follow Up/Referral: Follow up with the PCP in one week Follow up with the Urology at [facility]. In 1-2 weeks Medications: Augmentin as prescribed. Scheduled Amoxicillin & Pot Clavulanate (Augmentin Tablet), 875 MG PO BID Discharge Statement: "Patient was advised to return to the ER or call 911 if any headaches, dizziness, shortness of breath, chest pain, abdominal pain, bleeding, fevers, or worsening of medical condition. Patient was counseled about treatment plan, medications, possible side effects, patientverbalized understanding. All questions were answered to the best of my ability. This discharge took greater then 30 minutes in planning, reviewing documentation, counseling the patient, and discussing with other team members." ASSESSMENT ASSESSMENT Assessment 89-year-old female with a known history of cognitive decline, hypertension, diabetes mellitus type 2, previous history of depression in his has been with the hospital with a fall and generalized weakness found to have 1. Status post mechanical fall 2. Gram-negative UTI 3. Suspected aspiration pneumonia 4. Alzheimer dementia 5. Hypertension 6. Diabetes mellitus type 2 7. History of depression currently not in decompensation 8. Nodular liver/liver cirrhosis 9. Bilateral hydronephrosis rule out obstructive uropathy Date of Service: Jan 23, 2025 Billing Provider: PRINCESS ARTIS MD Common Visit Codes: 27739-CHS/OBS DISCH DAY >30min PRINCESS ARTIS MD Jan 23, 2025 17:12
[2025-01-24] VITALS (7 sets, daily range): BP systolic 123–147; BP diastolic 63–77; PULSE 102–113; RESP 18–21; TEMP 97.8–98.4; O2SAT 92–96
--- NOTE | 2025-01-24 12:01 | ECG ---
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
--- NOTE | 2025-01-24 12:01 | ECG ---
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
--- NOTE | 2025-01-24 12:01 | ECG ---
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
[2025-01-25] VITALS (8 sets, daily range): BP systolic 123–148; BP diastolic 63–82; PULSE 96–110; RESP 18–20; TEMP 97.6–98.2; O2SAT 93–99
[2025-01-25 13:23] LABS: Alanine Aminotransferase 29 U/L (7-40); Alkaline Phosphatase 101 U/L (46-116); Anion Gap 9 (5-15); BUN/Creatinine Ratio 42.0 (10.0-20.0); Blood Urea Nitrogen 21 mg/dL (9-23); Calcium 8.8 mg/dL (8.7-10.4); Chloride 101 mmol/L (98-107); Sodium 144 mmol/L (136-145)
[2025-01-25 13:24] LABS: Albumin 2.9 g/dL (3.2-4.8); Bilirubin, Total 0.6 mg/dL (0.2-1.0); Carbon Dioxide 34 mmol/L (20-31); Glucose 109 mg/dL (74-106); Total Protein 5.5 g/dL (5.7-8.2)
[2025-01-25 13:26] LABS: Potassium 2.4 mmol/L (3.5-5.1)
[2025-01-25] MEDS: POTASSIUM CHL 20 Meq TABLET PO ONE (14:00)
--- NOTE | 2025-01-25 16:04 | DVHPN2 ---
Subjective Clinically stable. Pending discharge to halfway facility. Social Service working on bed availability. Reviewed: Care Plan, H&P, Labs, Medications, Previous Orders Changes from previous H/P or p: No Changes General: Per HPI Objective Vitals Vital Signs Date Time Temp Pulse Resp B/P (MAP) Pulse Ox O2 Delivery O2 Flow Rate FiO2 01/25/25 13:00 98.0 110 20 144/65 (91) 94 98.0 01/25/25 08:00 Nasal Cannula* 2 28 Intake/Output Intake and Output 01/25/25 07:00 Intake Total 1085 ml Output Total 1735 ml Balance -650 ml Intake Oral 1035 ml IV Total 50 ml Output Urine Total 1735 ml # Bowel Movements 2 Exam Comfortable in bed. No complaints. Cardiovascular S2 normal heart sounds S1- S2. Lungs without rales wheezes. Abdomen soft positive bowel sounds. Extremities no edema. General Appearance: Alert, Oriented X3 Cardiovascular: Regular rate, Normal S1, Normal S2 Extremities: No clubbing Neuro: Normal speech Medications Current Medications Medications Dose Ordered Sig/Bennie Route Start Time Stop Time Status Last Admin Dose Admin Sodium Chloride 10 ml Q8HR IV 01/19/25 06:00 01/25/25 14:01 10 ML Nitroglycerin 0.4 mg Q5MINP PRN SL 01/19/25 04:00 Pantoprazole Sodium 40 mg DAILY IV 01/20/25 10:00 01/25/25 10:09 40 MG Enoxaparin Sodium 40 mg DAILY SC 01/20/25 10:00 01/25/25 10:09 40 MG Furosemide 20 mg BIDD IV 01/19/25 18:00 01/25/25 06:38 20 MG Lactulose 30 ml BID PO 01/19/25 10:00 01/24/25 21:53 30 ML Acetaminophen/ Hydrocodone Bitart 1 tab Q6HP PRN PO 01/20/25 10:30 01/20/25 11:31 1 TAB Morphine Sulfate 1 mg Q4HP PRN IV 01/20/25 10:30 Ceftriaxone Sodium 50 ml @ 100 mls/hr DAILY@09 IV 01/23/25 09:00 01/25/25 10:09 100 MLS/HR Laboratory Results Laboratory Tests 01/23/25 06:37 01/25/25 12:54 Chemistry Test 01/25/25 12:54 Albumin 2.9 g/dL (3.2-4.8) L Calcium Level 8.8 mg/dL (8.7-10.4) Total Protein 5.5 g/dL (5.7-8.2) L LFT Test 01/25/25 12:54 Alanine Aminotransferase (ALT) 29 U/L (7-40) Alkaline Phosphatase 101 U/L (46-116) Aspartate Amino Transferase (AST) 43 U/L (13-40) H Total Bilirubin 0.6 mg/dL (0.2-1.0) Urinalysis Test 01/19/25 01:21 Urine Color Yellow (Yellow) Urine Clarity Turbid (Clear) H Urine pH 5.5 (5.0-9.0) Urine Specific [place] 1.027 (1.001-1.035) Urine Protein 1+ (Negative) H Urine Ketones 1+ (Negative) H Urine Blood 1+ /uL (Negative) H Urine Nitrite Negative (Negative) Urine Bilirubin Negative (Negative) Urine Urobilinogen Normal mg/dL (Negative) Urine Leukocyte Esterase Trace /uL (Negative) Urine RBC 1 /hpf (0 - 4) Urine Microscopic WBC 11 /HPF (0-5) H Urine Squamous Epithelial Cells Few /hpf (<5) Urine Bacteria Many /hpf (None Seen) H Urine Mucus Few (None Seen) Urine Yeast (Budding) Occasional /hpf (None Urine Glucose Normal mg/dL (Normal) Microbiology Microbiology Date/Time Source Procedure Growth Status 01/20/25 20:20 Sputum Gram Stain - Final Complete 01/20/25 20:20 Sputum Respiratory Culture - Final Complete 01/20/25 11:51 Leg Left Gram Stain - Final Complete 01/20/25 11:51 Wound Culture - Final Staphylococcus aureus Complete 01/19/25 08:00 Voided Urine Urine Culture - Final Escherichia coli Complete 01/19/25 04:07 Blood Blood Culture - Final NO GROWTH AFTER 5 DAYS OF INCUBATION. Complete Assessment/Plan Assessment/Plan Given the no recent labs I will order electrolytes today. Proceed with halfway facility for bed available. Otherwise continue rest of supportive care and treatment as she is on. Further clinical management per clinical course. Discussed with the nurse regarding care plan. Plan discussed with: Other Problem List: (1) Failure to thrive (2) Hypernatremia (3) Elevated troponin (4) Elevated bilirubin (5) Elevated d-dimer Date of Service: Jan 25, 2025 Billing Provider: DELANEY SHELDON MD Common Visit Codes: [id number] INP/OBS CARE(LOW) DELANEY SHELDON MD Jan 25, 2025 16:04
[2025-01-25] MEDS: POTASSIUM EFFERVESENT TAB 25 MEQ PO ONE (16:16)
[2025-01-26 05:00] VITALS: BP 129/65; PULSE 101; RESP 18; TEMP 97.8; O2SAT 95
[2025-01-26 07:47] LABS: Hematocrit 50.2 % (36.0-46.0); Hemoglobin 16.4 g/dL (12.2-16.2); Mean Corpuscular Hemoglobin 29.6 pg (28.0-32.0); Mean Corpuscular Volume 90.4 fL (80.0-100.0); Nucleated Red Blood Cells % 0.1 %
[2025-01-26 07:50] LABS: Anion Gap 8 (5-15); Chloride 100 mmol/L (98-107); Sodium 143 mmol/L (136-145)
[2025-01-26 07:52] LABS: Calcium 9.5 mg/dL (8.7-10.4)
[2025-01-26 07:55] LABS: Carbon Dioxide 35 mmol/L (20-31); Potassium 2.9 mmol/L (3.5-5.1)
[2025-01-26 07:56] LABS: Glucose 105 mg/dL (74-106)
[2025-01-26 07:57] LABS: BUN/Creatinine Ratio 39.3 (10.0-20.0); Blood Urea Nitrogen 24 mg/dL (9-23); Magnesium 2.0 mg/dL (1.6-2.6)
[2025-01-26 08:00] VITALS: PULSE 111
[2025-01-26 09:00] VITALS: BP 130/66; PULSE 108; RESP 18; TEMP 97.8; O2SAT 90
[2025-01-26] MEDS: POTASSIUM CHLORIDE 20 MEQ, LIDOCAINE 1% (LOCAL ANESTH.) 2 ML in SODIUM CHL 0.9% 100 ML IV ONE (12:14)
[2025-01-26] MEDS: POTASSIUM CHL 20 Meq TABLET PO ONE (12:19)
--- NOTE | 2025-01-26 13:22 | DVHPN2 ---
Subjective Clinically stable. [facility] Social Service working on bed availability. Electrolytes being replaced appropriately. Reviewed: Care Plan, H&P, Labs, Medications, Previous Orders Changes from previous H/P or p: No Changes General: Per HPI Objective Vitals Vital Signs Date Time Temp Pulse Resp B/P (MAP) Pulse Ox O2 Delivery O2 Flow Rate FiO2 01/26/25 09:00 97.8 108 18 130/66 (87) 90 97.8 01/26/25 08:00 Nasal Cannula* 2 28 Intake/Output Intake and Output 01/26/25 07:00 Intake Total 950 ml Output Total 525 ml Balance 425 ml Intake Oral 950 ml Output Urine Total 525 ml # Bowel Movements 2 Exam Comfortable in bed. No complaints. Cardiovascular S2 normal heart sounds S1- S2. Lungs without rales wheezes. Abdomen soft positive bowel sounds. Extremities no edema. General Appearance: Alert, Oriented X3 Cardiovascular: Regular rate, Normal S1, Normal S2 Extremities: No clubbing Neuro: Normal speech Medications Current Medications Medications Dose Ordered Sig/Bennie Route Start Time Stop Time Status Last Admin Dose Admin Sodium Chloride 10 ml Q8HR IV 01/19/25 06:00 01/26/25 06:13 10 ML Nitroglycerin 0.4 mg Q5MINP PRN SL 01/19/25 04:00 Enoxaparin Sodium 40 mg DAILY SC 01/20/25 10:00 01/26/25 09:01 40 MG Lactulose 30 ml BID PO 01/19/25 10:00 01/24/25 21:53 30 ML Acetaminophen/ Hydrocodone Bitart 1 tab Q6HP PRN PO 01/20/25 10:30 01/20/25 11:31 1 TAB Morphine Sulfate 1 mg Q4HP PRN IV 01/20/25 10:30 Ceftriaxone Sodium 50 ml @ 100 mls/hr DAILY@09 IV 01/23/25 09:00 01/26/25 09:00 100 MLS/HR Furosemide 20 mg BIDD PO 01/26/25 18:00 Potassium Chloride 8 meq BID PO 01/26/25 22:00 Laboratory Results Laboratory Tests 01/26/25 06:40 Chemistry Test 01/26/25 06:40 Calcium Level 9.5 mg/dL (8.7-10.4) Magnesium Level 2.0 mg/dL (1.6-2.6) Urinalysis Test 01/19/25 01:21 Urine Color Yellow (Yellow) Urine Clarity Turbid (Clear) H Urine pH 5.5 (5.0-9.0) Urine Specific [place] 1.027 (1.001-1.035) Urine Protein 1+ (Negative) H Urine Ketones 1+ (Negative) H Urine Blood 1+ /uL (Negative) H Urine Nitrite Negative (Negative) Urine Bilirubin Negative (Negative) Urine Urobilinogen Normal mg/dL (Negative) Urine Leukocyte Esterase Trace /uL (Negative) Urine RBC 1 /hpf (0 - 4) Urine Microscopic WBC 11 /HPF (0-5) H Urine Squamous Epithelial Cells Few /hpf (<5) Urine Bacteria Many /hpf (None Seen) H Urine Mucus Few (None Seen) Urine Yeast (Budding) Occasional /hpf (None Urine Glucose Normal mg/dL (Normal) Microbiology Microbiology Date/Time Source Procedure Growth Status 01/20/25 20:20 Sputum Gram Stain - Final Complete 01/20/25 20:20 Sputum Respiratory Culture - Final Complete 01/20/25 11:51 Leg Left Gram Stain - Final Complete 01/20/25 11:51 Wound Culture - Final Staphylococcus aureus Complete 01/19/25 08:00 Voided Urine Urine Culture - Final Escherichia coli Complete 01/19/25 04:07 Blood Blood Culture - Final NO GROWTH AFTER 5 DAYS OF INCUBATION. Complete Assessment/Plan Assessment/Plan Continue to correct her electrolytes. Patient is weak therefore we will keep the Emerson catheter to go to jail facility. Otherwise continue rest of supportive care and treatment. Discussed with the nurse at bedside regarding care plan. Plan discussed with: Patient, Other My Orders Orders - DELANEY SHELDON MD Procedure Category Date Status Time Code Status CODE 01/26/25 Transmitted 02:10 Discontinue Emerson EMMA 01/26/25 In Process Catheter 09:51 Furosemide Tablet PHA 01/26/25 In Process (Lasix Tablet) 18:00 Potassium Er Tablet PHA 01/26/25 In Process (Klor-Con Tablet) 22:00 Basic Metabolic Panel LAB 01/27/25 Verified 04:00 Magnesium LAB 01/27/25 Verified 04:00 * Mechanical Equipment Sales Engineer CONS 01/26/25 Transmitted Consult Problem List: (1) Physical deconditioning (2) Hypernatremia (3) Failure to thrive Date of Service: Jan 26, 2025 Billing Provider: DELANEY SHELDON MD Common Visit Codes: [id number] INP/OBS CARE(LOW) DELANEY SHELDON MD Jan 26, 2025 13:21
[2025-01-26 15:49] LABS: Chloride 103 mmol/L (98-107); Sodium 144 mmol/L (136-145)
[2025-01-26 15:50] LABS: Anion Gap 7 (5-15); Calcium 9.2 mg/dL (8.7-10.4)
[2025-01-26 15:55] LABS: BUN/Creatinine Ratio 40.0 (10.0-20.0); Glucose 102 mg/dL (74-106)
[2025-01-26 15:56] LABS: Magnesium 2.0 mg/dL (1.6-2.6)
[2025-01-26 16:01] LABS: Blood Urea Nitrogen 26 mg/dL (9-23); Carbon Dioxide 34 mmol/L (20-31); Potassium 2.9 mmol/L (3.5-5.1)
[2025-01-26 17:00] VITALS: BP 121/63; PULSE 107; RESP 16; TEMP 97.7; O2SAT 95
[2025-01-26] MEDS: FUROSEMIDE 20 MG TAB PO SCH (17:03)
[2025-01-26] MEDS: POTASSIUM EFFERVESENT TAB 25 MEQ PO ONE (18:45)
[2025-01-26] MEDS: POTASSIUM CHL 20MEQ/100ML 100 ML IV ONE (19:00)
[2025-01-26 20:00] VITALS: PULSE 102; RESP 18
[2025-01-26 21:00] VITALS: BP 121/57; PULSE 102; RESP 18; TEMP 97.4; O2SAT 93
[2025-01-26] MEDS: POTASSIUM CHLORIDE 8 MEQ TAB PO SCH (22:03)
[2025-01-27 01:00] VITALS: BP 131/56; PULSE 96; RESP 18; TEMP 98.2; O2SAT 96
[2025-01-27 05:00] VITALS: BP 138/68; PULSE 94; RESP 18; TEMP 98.5; O2SAT 95
[2025-01-27 07:21] LABS: Anion Gap 8 (5-15); Calcium 9.2 mg/dL (8.7-10.4); Chloride 105 mmol/L (98-107)
[2025-01-27 07:27] LABS: Glucose 88 mg/dL (74-106); Magnesium 2.0 mg/dL (1.6-2.6)
[2025-01-27 07:28] LABS: Carbon Dioxide 33 mmol/L (20-31); Potassium 2.8 mmol/L (3.5-5.1); Sodium 146 mmol/L (136-145)
[2025-01-27 07:29] LABS: Blood Urea Nitrogen 30 mg/dL (9-23)
[2025-01-27 07:33] LABS: BUN/Creatinine Ratio 47.6 (10.0-20.0)
[2025-01-27 08:00] VITALS: PULSE 95
[2025-01-27 08:44] VITALS: BP 141/70; PULSE 101; RESP 20; TEMP 98.4; O2SAT 93
[2025-01-27] MEDS: POTASSIUM CHLORIDE 40 MEQ, LIDOCAINE 1% (LOCAL ANESTH.) 4 ML in SODIUM CHL 0.9% 250 ML IV ONE (09:34)
[2025-01-27] MEDS: POTASSIUM CHL 20 Meq TABLET PO ONE (09:53)
[2025-01-27] MEDS: POTASSIUM CHLORIDE 8 MEQ TAB PO SCH (09:53)
[2025-01-27 13:00] VITALS: BP 124/55; PULSE 95; RESP 18; TEMP 98.6; O2SAT 95
[2025-01-27 13:55] LABS: Potassium 4.0 mmol/L (3.5-5.1)
[2025-01-27 13:56] LABS: Anion Gap 4 (5-15)
[2025-01-27 13:58] LABS: Calcium 8.4 mg/dL (8.7-10.4); Carbon Dioxide 34 mmol/L (20-31); Chloride 108 mmol/L (98-107); Sodium 146 mmol/L (136-145)
[2025-01-27 14:01] LABS: BUN/Creatinine Ratio 51.8 (10.0-20.0); Glucose 99 mg/dL (74-106)
[2025-01-27 14:02] LABS: Magnesium 1.8 mg/dL (1.6-2.6)
[2025-01-27 14:03] LABS: Blood Urea Nitrogen 29 mg/dL (9-23)
== END 2025-01-27 17:00 | DRG 280 ==
LOC: ER 20:48 → EDBD 20:48 → OVERFLOW 01-19 03:54 → TELE-CENTR 01-19 12:05
PROVIDERS: ADMIT Hospitalist; ATTEND Hospitalist
DX: I11.0 Hypertensive heart disease with heart failure (principal); G92.8 Other toxic encephalopathy; I21.A1 Myocardial infarction type 2; J69.0 Pneumonitis due to inhalation of food and vomit; J96.01 Acute respiratory failure with hypoxia; I50.33 Acute on chronic diastolic (congestive) heart failure; J15.69 Pneumonia due to other Gram-negative bacteria; J15.9 Unspecified bacterial pneumonia; E87.0 Hyperosmolality and hypernatremia; L03.115 Cellulitis of right lower limb; E87.20 Acidosis, unspecified; M62.82 Rhabdomyolysis; L03.116 Cellulitis of left lower limb; N13.6 Pyonephrosis; F02.818 Dementia in other diseases classified elsewhere, unspecified severity, with other behavioral disturbance; Z66 Do not resuscitate; Z20.822 Contact with and (suspected) exposure to COVID-19; R62.7 Adult failure to thrive; K76.82 Hepatic encephalopathy; K74.60 Unspecified cirrhosis of liver; G47.10 Hypersomnia, unspecified; E86.9 Volume depletion, unspecified; K80.20 Calculus of gallbladder without cholecystitis without obstruction; K82.8 Other specified diseases of gallbladder; G30.9 Alzheimer's disease, unspecified; E11.9 Type 2 diabetes mellitus without complications; N20.0 Calculus of kidney; E87.8 Other disorders of electrolyte and fluid balance, not elsewhere classified; F32.A Depression, unspecified; Z80.8 Family history of malignant neoplasm of other organs or systems; Z83.3 Family history of diabetes mellitus; Z79.899 Other long term (current) drug therapy; Z68.35 Body mass index [BMI] 35.0-35.9, adult
CPT/HCPCS: 36415; 36600; 70450; 71045; 71275; 74176; 74177; 76705; 80048; 80053; 80074; 80202; 81001; 82140; 82550; 82565; 82805; 82962; 83605; 83735; 83880; 84443; 84484; 85025; 85379; 87040; 87070; 87077; 87081; 87086; 87088; 87186; 87205; 87426; 87804; 93005; 93306; 93970; 93971; 96360; 97110; 97116; 97163; G0378; J2003; J2185; J2405; J2470; J3480